=== PATIENT | female | born 1975 | race American Indian/Alaskan Native ===

== ENCOUNTER 2021-03-26 10:50 | Emergency (ER) | payer SELFPAY ==
[2021-03-26 11:08] VITALS: BP 146/99
--- NOTE | 2021-03-26 11:17 | Emergency Department Report ---
ED Neuro Deficit HPI - General Chief Complaint: Weakness Stated Complaint: NUBMESS IN HANDS AND LEGS Time Seen by Provider: 03/26/21 11:14 Source: patient Mode of arrival: Ambulatory Limitations: No Limitations - History of Present Illness Initial Comments: Patient presents with multiple complaints. She states that she just feels weak and dizzy. She has had numbness and tingling in her fingers and feet. She just does not feel well. She states that this been going on for "some time." She states that the numbness and tingling started to get worse 4 days ago. She states that she fell out of bed this morning. She states that she feels both lightheaded and describes vertigo. These symptoms vary. She reports that she has been seen at [facility] multiple times and they will "not tell me what is going on." She does have paperwork from [facility] including for dizziness and lightheadedness dated January of this year. She has no fever. There has been no diplopia. She has had no incontinence. - Related Data Allergies/Adverse Reactions: Allergies Allergy/AdvReac Type Severity Reaction Status Date / Time No Known Allergies Allergy Unverified 03/26/21 11:08 ED Review of Systems ROS: Stated complaint: NUBMESS IN HANDS AND LEGS Other details as noted in HPI Comment: All other systems reviewed and negative Constitutional: denies: fever Eyes: denies: vision change ENT: denies: throat pain Respiratory: denies: cough Cardiovascular: denies: chest pain Endocrine: denies: unexplained weight loss Gastrointestinal: denies: abdominal pain Genitourinary: denies: dysuria Musculoskeletal: denies: back pain Skin: denies: rash Neurological: as per HPI. denies: headache Hematological/Lymphatic: denies: easy bruising ED Past Medical Hx - Past Medical History Previous Medical History?: Yes Hx Seizures: Yes - Surgical History Past Surgical History?: Yes Additional Surgical History: - Family History Family history: hypertension, other ( Negative for stroke) - Social History Smoking Status: Current Every Day Smoker (we discussed tobacco cessation x3 minutes) ED Neuro Physical Exam - General Limitations: No Limitations, Other ( pulse ox was noted and normal.) General appearance: alert, in no apparent distress, other ( Nontoxic) Suspected Stroke: No - Head Head exam: Present: atraumatic, normocephalic, normal inspection - Eye Eye exam: Present: normal appearance, PERRL, EOMI. Absent: scleral icterus - ENT ENT exam: Present: normal exam, mucous membranes dry, normal external ear exam - Neck Neck exam: Present: normal inspection. Absent: meningismus - Respiratory Respiratory exam: Present: normal lung sounds bilaterally. Absent: respiratory distress - Cardiovascular Cardiovascular Exam: Present: regular rate, normal rhythm - GI/Abdominal GI/Abdominal exam: Present: soft. Absent: tenderness - Extremities Exam Extremities exam: Present: normal capillary refill. Absent: pedal edema, joint swelling - Back Exam Back exam: Absent: CVA tenderness (R), CVA tenderness (L) - Neurological Exam Neurological exam: Present: alert, oriented X3, CN II-XII intact, reflexes normal. Absent: motor sensory deficit - NIHSS Assessment Interval: Baseline 1a. Level of Consciousness: alert/keenly responsive 1b. LOC Questions: answers both correctly 1c. LOC Commands: performs tasks correctly 2. Best Gaze: normal 3. Visual: no visual loss 4. Facial Palsy: normal symmetrical movement 5b. Motor Arm Right: no drift 5a. Motor Arm Left: no drift 6a. Motor Leg Left: no drift 6b. Motor Leg Right: no drift 7. Limb Ataxia: absent 8. Sensory: normal 9. Best Language: no aphasia 10. Dysarthria: normal 11. Extinction/Inattention: no abnormality Total Score: 0 Stroke Severity: No Stroke Symptoms - Psychiatric Psychiatric exam: Present: flat affect - Skin Skin exam: Present: warm, dry ED Course Vital Signs 03/26/21 11:06 Temperature 98.9 F Pulse Rate 111 H Respiratory 16 Rate Blood Pressure 146/99 O2 Sat by Pulse 100 Oximetry - Reevaluation(s) Reevaluation #1: 03/26/21 11:17 labs were ordered. Discharge paperwork from [facility] and [facility] records reviewed. - Lab Data Result diagrams: 03/26/21 11:17 03/26/21 11:17 Lab Results 03/26/21 03/26/21 Range/Units 11:17 11:17 WBC 10.0 (4.5-11.0) K/mm3 RBC 2.79 L (3.65-5.03) M/mm3 Hgb 9.2 L (10.1-14.3) gm/dl Hct 27.9 L (30.3-42.9) % MCV 100 H (79-97) fl MCH 33 H (28-32) pg MCHC 33 (30-34) % RDW 18.1 H (13.2-15.2) % Plt Count 492 H (140-440) K/mm3 Sodium 129 L (137-145) mmol/L Potassium 3.2 L (3.6-5.0) mmol/L Chloride 89.1 L (98-107) mmol/L Carbon Dioxide 26 (22-30) mmol/L Anion Gap 17 mmol/L BUN 5 L (7-17) mg/dL Creatinine 0.4 L (0.6-1.2) mg/dL Estimated GFR > 60 ml/min BUN/Creatinine Ratio 13 % Glucose 108 H (65-100) mg/dL Calcium 9.1 (8.4-10.2) mg/dL - Medical Decision Making Patient was not found to have evidence of stroke given her presentation. She certainly did not have obvious metabolic derangement to account for any paresthesias. She does have a mild hypokalemia which can be addressed as an outpatient. She has mild hyponatremia also can be addressed as an outpatient. Patient seems to have a chronic anemia. She does not seem to be symptomatic from this. It is unlikely that earlier hemoglobin of 9 would cause generalized weakness. Regardless, she can take iron and follow-up with your regular doctor. There is no obvious infectious pathology to account for her symptoms either. Critical Care Time: No Critical care attestation.: If time is entered above; I have spent that time in minutes in the direct care of this critically ill patient, excluding procedure time. ED Disposition Clinical Impression: General weakness Disposition: 01 HOME / SELF CARE / HOMELESS Is pt being admited?: No Condition: Stable Instructions: Weakness Additional Instructions: Take iron tablets [id number]-[id number]. Take a multivitamin. Drink plenty water. Return for problems. Eat foods that are high in potassium including bananas, tomatoes, and orange juice. Referrals: ALYSA QUINTERO MD [Staff Physician] - 3-5 Days PRIMARY CAREMD [Referring] - 3-5 Days
[2021-03-26 11:54] LABS: Hematocrit 27.9 % (30.3-42.9); Hemoglobin 9.2 gm/dl (10.1-14.3); Mean Corpuscular HGB Conc 33 % (30-34); Mean Corpuscular Volume 100 fl (79-97); Platelet Count 492 K/mm3 (140-440); Red Blood Count 2.79 M/mm3 (3.65-5.03); Red Cell Distribution Width 18.1 % (13.2-15.2)
[2021-03-26 11:59] LABS: Blood Urea Nitrogen 5 mg/dL (7-17); Calcium 9.1 mg/dL (8.4-10.2); Hemolysis Index 4
[2021-03-26 12:01] LABS: BUN/Creatinine Ratio 13
== END 2021-03-26 14:33 | disposition home or self-care (01) ==
LOC: ED 10:50
DX: R53.1 Weakness (principal); R42 Dizziness and giddiness; F17.200 Nicotine dependence, unspecified, uncomplicated; Z98.890 Other specified postprocedural states
CPT/HCPCS: 36415; 80048; 85027; 99283

== ENCOUNTER 2021-03-31 10:38 | Inpatient (IN) | payer SELFPAY ==
--- NOTE | 2021-03-31 10:52 | Event Note ---
ED Screening Note ED Screening Note: PMH SZ CYCLICAL VOMITING HTN HOME RX KEPPRA PPI SPIRONAL. PCP KRISTIN LMP 1 Y AGO PSH CSEC CIG/OCC THC/OCC ETOH CO VISION CHANGE/ THINKS SHE HAD A SZ HR 115 NO VOMITING This initial assessment/diagnostic orders/clinical plan/treatment(s) is/are subject to change based on patients health status, clinical progression and re- assessment by fellow clinical providers in the ED. Further treatment and workup at subsequent clinical providers discretion. Patient/guardian urged not to elope from the ED as their condition may be serious if not clinically assessed and managed. Initial orders include:
[2021-03-31] MEDS ORDERED: LACTATED RINGERS 1,000 ML IV ONE ×2 (11:03→15:00)
--- NOTE | 2021-03-31 11:04 | Emergency Department Report ---
ED General Adult HPI - General Chief complaint: Neuro Symptoms/Deficit Stated complaint: EYES BLURRY,CANT WALK PUI?: No Time Seen by Provider: 03/31/21 10:47 Source: patient, RN notes reviewed, old records reviewed Mode of arrival: Wheelchair Limitations: Physical Limitation - History of Present Illness Initial comments: The patient was evaluated in the emergency department for symptoms described in the history of present illness. He/she was evaluated in the context of the global COVID-19 pandemic, which necessitated consideration that the patient might be at risk for infection with the virus that causes COVID-19. Instit utional protocols and algorithms that pertain to the evaluation of patients at risk for COVID-19 are in a state of rapid change based on information released by regulatory bodies including the CDC and federal and state organizations. These policies and algorithms were followed during the patient's care in the emergency department. Please note that these policies, procedures and recommendations changed on a rapid basis. The patient is a 45-year-old female. She is not known to myself previously. She presents to the ER today with a complaint of 4 to 5 days of right-sided binocular blurry vision, with right lateral temporal visual loss, numbness in her bilateral hands and forearms, unsteady gait and inability to walk. She denies headache, neck pain, chest pain, abdominal pain, shortness of breath, nausea, vomiting diarrhea. She denies loss of taste and smell. -: days(s) Consistency: constant Improves with: rest Worsens with: movement - Related Data Home Medications Medication Instructions Recorded Confirmed Last Taken Aldactone 50 mg PO DAILY 03/31/21 03/31/21 Unknown Pantoprazole Sodium [Protonix] 40 mg PO DAILY 03/31/21 03/31/21 03/22/21 19:00 levETIRAcetam [Keppra TAB] 500 mg PO BID 03/31/21 03/31/21 03/30/21 Allergies Allergy/AdvReac Type Severity Reaction Status Date / Time No Known Allergies Allergy Verified 03/31/21 10:43 ED Review of Systems ROS: Stated complaint: EYES BLURRY,CANT WALK Other details as noted in HPI Constitutional: malaise, weakness. denies: fever Eyes: vision change. denies: eye discharge ENT: denies: epistaxis Respiratory: denies: cough Cardiovascular: denies: chest pain Gastrointestinal: denies: abdominal pain, nausea, vomiting, diarrhea Genitourinary: denies: dysuria Neurological: headache, weakness, abnormal gait Psychiatric: anxiety ED Past Medical Hx - Past Medical History Hx Seizures: Yes - Surgical History Additional Surgical History: - Social History Smoking Status: Current Every Day Smoker (we discussed tobacco cessation x3 m inutes) - Medications Home Medications: Home Medications Medication Instructions Recorded Confirmed Last Taken Type Aldactone 50 mg PO DAILY 03/31/21 03/31/21 Unknown History Pantoprazole Sodium [Protonix] 40 mg PO DAILY 03/31/21 03/31/21 03/22/21 19:00 History levETIRAcetam [Keppra TAB] 500 mg PO BID 03/31/21 03/31/21 03/30/21 History ED Physical Exam - General Limitations: Physical Limitation General appearance: alert, anxious - Head Head exam: Present: atraumatic, normocephalic - Eye Eye exam: Present: normal appearance (Visual acuity intact to finger counting in color perception at a close distance), PERRL, EOMI (EOMI left eye.), nystagmus, other (A right-sided internuclear ophthalmoplegia is noted. Right eye does not adduction past midline.) - ENT ENT exam: Present: normal exam, normal orophraynx, mucous membranes moist, normal external ear exam - Neck Neck exam: Present: normal inspection, full ROM. Absent: tenderness, meningismus - Respiratory Respiratory exam: Present: normal lung sounds bilaterally. Absent: respiratory distress, wheezes, rales, rhonchi, stridor, decreased breath sounds - Cardiovascular Cardiovascular Exam: Present: normal rhythm, tachycardia, normal heart sounds. Absent: systolic murmur, diastolic murmur, rubs, gallop - GI/Abdominal GI/Abdominal exam: Present: soft. Absent: distended, tenderness, guarding, rebound, rigid - Extremities Exam Extremities exam: Present: normal inspection, full ROM, other (2+ pulses noted in the bilateral upper and lower extremities. There is no palpable cord. negative Homans sign. Muscular compartments are soft. The pelvis is stable.). Absent: pedal edema, calf tenderness - Back Exam Back exam: Present: normal inspection, full ROM. Absent: tenderness, CVA tenderness (R), CVA tenderness (L), paraspinal tenderness, vertebral tenderness - Neurological Exam Neurological exam: Present: alert, oriented X3, abnormal gait (Patient is unsteady, and walks with a broad-based gait), other (There is no facial droop. Tongue is midline. Left EOMI. Right-sided TYRON noted. Hearing intact grossly. 5 out of 5 strength bilateral upper and lower extremities. Sensation intact to light touch in 4 extremities.). Absent: reflexes normal (Downgoing plantar reflexes bilaterally. Diminished biceps, triceps, quadriceps reflexes bilaterally.) - Psychiatric Psychiatric exam: Present: anxious - Skin Skin exam: Present: warm, dry, intact, normal color. Absent: rash ED Course Vital Signs 03/31/21 03/31/21 03/31/21 10:44 14:59 15:08 Temperature 98.1 F Pulse Rate 115 H 101 H 98 H Respiratory 16 18 16 Rate Blood Pressure 142/97 [Left] O2 Sat by Pulse 100 Oximetry 03/31/21 03/31/21 03/31/21 15:25 15:31 15:45 Temperature Pulse Rate 120 H 110 H 104 H Respiratory 11 L 14 Rate Blood Pressure [Left] O2 Sat by Pulse Oximetry 03/31/21 03/31/21 03/31/21 16:01 16:15 16:31 Temperature Pulse Rate 92 H 91 H 105 H Respiratory 12 14 12 Rate Blood Pressure [Left] O2 Sat by Pulse Oximetry 03/31/21 03/31/21 03/31/21 16:45 17:01 17:15 Temperature Pulse Rate 101 H 102 H 99 H Respiratory 11 L 18 22 Rate Blood Pressure [Left] O2 Sat by Pulse Oximetry 03/31/21 03/31/21 03/31/21 17:31 17:45 18:01 Temperature Pulse Rate 101 H 95 H 108 H Respiratory 17 13 11 L Rate Blood Pressure [Left] O2 Sat by Pulse Oximetry 03/31/21 03/31/21 03/31/21 18:15 18:31 18:45 Temperature Pulse Rate 103 H 102 H 96 H Respiratory 13 11 L 12 Rate Blood Pressure [Left] O2 Sat by Pulse Oximetry 03/31/21 03/31/21 03/31/21 19:01 19:15 19:31 Temperature Pulse Rate 101 H 95 H 97 H Respiratory 9 L 16 10 L Rate Blood Pressure [Left] O2 Sat by Pulse Oximetry 04/01/21 00:00 Temperature Pulse Rate 99 H Respiratory Rate Blood Pressure [Left] O2 Sat by Pulse Oximetry - Reevaluation(s) Reevaluation #1: 03/31/21 11:26 Differential diagnosis, including but not limited to: Multiple sclerosis, electrolyte derangement, internuclear ophthalmoplegia, Warnicke's encephalopathy, stroke, myopathy, deconditioning, alcohol dependence Assessment and plan: 45-year-old female, who is afebrile but tachycardic, walking with an unsteady gait for 4 days, has past-pointing in her bilateral upper extremities, positive bilateral upper extremity pronator drift, [id number] clumsy, right-sided ocular lateral visual field cut, 4 days of neurologic symptoms. Given duration of symptoms, not a TPA candidate, and emergent CT angiogram head and neck not indicated. Patient will be treated aggressively with IV fluids, high-dose thiamine, we will obtain stat neurology consultation, noncontrast CT scan of the brain, repeat laboratory studies, and admit this patient to the medical service. I discussed this plan of care with the patient. She is agreeable to this plan of care. Reassess after initial data points Reevaluation #2: 03/31/21 11:52 Discussed patient's history, physical, clinical impression with neurology on- call, Dr. Mcdermott. He will evaluate the patient. Is in agreement with thiamine, and noncontrast CT scan of the brain. Also recommends a CT angiogram head and neck. He will make further recommendations after his assessment 03/31/21 13:38 The patient is found to have hypokalemia and hypomagnesemia. We are replete this. CT scan brain negative for acute findings. CT angiogram head negative for acute findings. Dr. Mcdermott's recommendations are reviewed and appreciated CT angiogram neck negative for acute findings Admitted to the hospital service under the care of Dr. Francisco Javier Kinsey 03/31/21 14:13 ED Medical Decision Making - Lab Data Result diagrams: 04/02/21 08:57 04/02/21 04:45 Vital Signs 03/31/21 10:44 Temperature 98.1 F Pulse Rate 115 H Respiratory 16 Rate Blood Pressure 142/97 [Left] O2 Sat by Pulse 100 Oximetry - EKG Data -: EKG Interpreted by De EKG shows normal: sinus rhythm Rate: normal - EKG Data When compared to previous EKG there are: previous EKG unavailable 03/31/21 14:13 The EKG is interpreted at 13: 43 Sinus rhythm, 96 bpm. Normal axis, normal P wave axis. Left ventricular hypertrophy. Atrial enlargement. Motion artifact. Abnormal EKG. Not a STEMI. - Radiology Data Radiology results: pending, report reviewed, image reviewed CT head/brain wo con INDICATION / CLINICAL INFORMATION: 45 years Female; TYRON right eye, ataxia arm numbness. TECHNIQUE: Routine CT head without contrast. All CT scans at this location are performed using CT dose reduction for ALARA by means of automated exposure control. COMPARISON: None. FINDINGS: BRAIN / INTRACRANIAL CONTENTS: No acute hemorrhage, mass effect, midline shift, hydrocephalus, or acute, large territorial infarct. No signs of significant atrophy or chronic infarct. No significant white matter abnormality seen. CRANIOCERVICAL JUNCTION: No significant abnormality. ORBITS: No significant abnormality of visualized orbits. SINUSES / MASTOIDS: Visualized paranasal sinuses and mastoid air cells are essentially clear. ADDITIONAL FINDINGS: None. IMPRESSION: 1. No focal mass, hemorrhage, hydrocephalus, or acute, large territorial infarct. Signer Name: Elier Cintron MD, III Signed: 03/31/2021 12:25 PM Workstation Name: [id number] CTA HEAD WITH CONTRAST HISTORY: Unsteady gait; visual field loss COMPARISON: None. TECHNIQUE: Routine non-contrast CT Head, CTA of the head and post- contrast CT Head are performed. 3-D/MIP reformats postprocessed. All CT scans at this location are performed using CT dose reduction for ALARA by means of automated exposure control CONTRAST: 100 ml of Omnipaque 350 FINDINGS: CTA Head: Intracranial vertebral arteries: Dominant left vertebral artery normal; smaller right vertebral artery patent up to basilar formation Basilar artery: No significant abnormality. Posterior cerebral arteries: No significant abnormality. Intracranial internal carotid arteries: No significant abnormality . Anterior cerebral arteries: No significant abnormality. Left A1 segment is the dominant artery Middle cerebral arteries: No significant abnormality. Dural venous sinuses:Not optimally opacified. No significant abnormality. Additional findings: None. IMPRESSION: 1. No significant abnormality. Signer Name: Emiliano Curiel MD Signed: 03/31/2021 12:31 PM Workstation Name: [id number] . CT angio neck INDICATION / CLINICAL INFORMATION: 45 years Female; Unsteady gait, visual field loss omni 350 100ml . TECHNIQUE: Thin cut axial images obtained through the head during IV bolus contrast administration. Sagittal, coronal, and 3 plane MIP reconstructions performed by the technologist. NASCET type criteria used evaluate stenoses. All CT scans at this location are performed using CT dose reduction for ALARA by means of automated exposure control. COMPARISON: None available. FINDINGS: ARCH: Bovine arch configuration noted. CAROTID ARTERIES: The visualized common and extracranial, internal carotid arteries are patent, but may be diffusely narrowed to a very mild degree. In addition, there may be mild, smooth narrowing of the internal carotid arteries in the carotid canals bilaterally-arteritis/vasculitis might be consideration. Please clinically correlate. Note, the lumen of the internal carotid arteries in the region of the carotid canals measure approximately 2-3 mm in maximum diameter. VERTEBRAL ARTERIES: Codominant vertebral system seen. No significant stenosis appreciated. ADDITIONAL FINDINGS: Poor dentition noted. There is minimal opacification of the inferior mastoids on the left. No coalescence of air cells identified. IMPRESSION: 1. No dominant stenosis appreciated on this CTA of the neck. 2. Mild narrowing of the internal carotid arteries seen in the symmetric fashion, as described above. Signer Name: Elier Cintron MD, III Signed: 03/31/2021 12:52 PM Critical care attestation.: If time is entered above; I have spent that time in minutes in the direct care of this critically ill patient, excluding procedure time. ED Disposition Clinical Impression: Unsteady gait, Visual loss, Hypokalemia, Hypomagnesemia, Macrocytic anemia Disposition: 09 ADMITTED INPATIENT Is pt being admited?: Yes Does the pt Need Aspirin: Yes Condition: Good - Assessment Assessment Interval: Baseline - Level of Consciousness 1a. Level of Consciousness: alert/keenly responsive - LOC Questions 1b. LOC Questions: answers both correctly - LOC Command 1c. LOC Commands: performs tasks correctly - Best Gaze 2. Best Gaze: normal - Visual 3. Visual: partial hemianopia - Facial Palsy 4. Facial Palsy: normal symmetrical movement - Motor Arm 5a. Motor Arm Left: drift 5b. Motor Arm Right: drift - Motor Leg 6a. Motor Leg Left: no drift 6b. Motor Leg Right: no drift - Limb Ataxia 7. Limb Ataxia: present 2 limbs - Sensory 8. Sensory: mild/moderate sensory loss - Best Language 9. Best Language: no aphasia - Dysarthria 10. Dysarthria: normal - Extinction and Inattention 11. Extinction/Inattention: no abnormality - Scoring Total Score: 6 Stroke Severity: Moderate Stroke
[2021-03-31] MEDS ORDERED: LORazepam 2 MG/ML VIAL IV PRN ×3 (11:24)
[2021-03-31] MEDS ORDERED: THIAMINE 500 MG in SODIUM CHLORIDE 0.9% 50 ML IV ONE (11:24)
[2021-03-31 11:40] LABS: Basophils # (Auto) 0.1 K/mm3 (0.0-0.1); Basophils % (Auto) 0.7 % (0.0-1.8); Eosinophils # (Auto) 0.1 K/mm3 (0.0-0.4); Eosinophils % (Auto) 1.1 % (0.0-4.3); Hematocrit 28.4 % (30.3-42.9); Hemoglobin 9.5 gm/dl (10.1-14.3); Lymphocytes % (Auto) 18.2 % (13.4-35.0); Mean Corpuscular HGB Conc 34 % (30-34); Mean Corpuscular Volume 102 fl (79-97); Monocytes # (Auto) 0.7 K/mm3 (0.0-0.8); Monocytes % (Auto) 6.2 % (0.0-7.3); Platelet Count 592 K/mm3 (140-440); Red Blood Count 2.79 M/mm3 (3.65-5.03)
[2021-03-31 11:48] LABS: INR 1.03 (0.87-1.13); Partial Thromboplastin Time 39.9 Sec. (24.2-36.6); Thrombin Time 18.6 Sec. (15.1-19.6)
[2021-03-31 12:04] LABS: Creatine Kinase MB 1.8 ng/mL (0.0-4.0)
[2021-03-31 12:05] LABS: Alanine Aminotransferase 26 units/L (7-56); Albumin 3.6 g/dL (3.9-5); Blood Urea Nitrogen 6 mg/dL (7-17); Hemolysis Index 0
[2021-03-31 12:07] LABS: BUN/Creatinine Ratio 15
[2021-03-31] MEDS ORDERED: MAGNESIUM SULFATE 2 GM/50 ML BAG IV ONE (12:09)
[2021-03-31] MEDS ORDERED: MAGNESIUM OXIDE 400 MG TAB PO STA (12:09)
[2021-03-31] MEDS ORDERED: POTASSIUM CHLORIDE ER 20 MEQ TAB PO ONE (12:09)
--- NOTE | 2021-03-31 12:27 | Consultation ---
History of Present Illness Consult date: 03/31/21 Medications and Allergies Allergies Allergy/AdvReac Type Severity Reaction Status Date / Time No Known Allergies Allergy Verified 03/31/21 10:43 Home Medications Medication Instructions Recorded Confirmed Last Taken Type Ibuprofen [Motrin] 600 mg PO Q8H PRN #20 tablet 03/26/21 Unknown Rx Active Meds: Active Medications Chlordiazepoxide HCl (Chlordiazepoxide 25 Mg Cap) 50 mg PO Q1HR PRN PRN Reason: CIWA-Ar 8-15 Thiamine HCl 500 mg/ Sodium (Chloride) 105 mls @ 100 mls/hr IV ONCE ONE Stop: 03/31/21 14:02 Magnesium Sulfate (Magnesium Sulfate 2gm/50ml) 2 gm in 50 mls @ 100 mls/hr IV ONCE ONE Stop: 03/31/21 12:38 Potassium Chloride (Kcl 20meq/100ml) 20 meq in 100 mls @ 100 mls/hr IV Q1H JONATHAN Stop: 03/31/21 15:59 Lorazepam (Lorazepam 2 Mg/Ml Vial) 2 mg IV Q1HR PRN PRN Reason: CIWA-Ar 8-15 Lorazepam (Lorazepam 2 Mg/Ml Vial) 4 mg IV Q1HR PRN PRN Reason: CIWA-Ar 16-25 Lorazepam (Lorazepam 2 Mg/Ml Vial) 4 mg IV Q15MIN PRN PRN Reason: CIWA-Ar >25 Physical Examination - Vital Signs Vital Signs: Vital Signs Temp Pulse Resp BP Pulse Ox 98.1 F 115 H 16 142/97 100 03/31/21 10:44 03/31/21 10:44 03/31/21 10:44 03/31/21 10:44 03/31/21 10:44 Results - Laboratory Findings CBC and BMP: 03/31/21 11:10 03/31/21 11:10 Abnormal Lab Findings: Abnormal Labs 03/31/21 03/31/21 03/31/21 11:10 11:10 11:10 WBC 11.1 H RBC 2.79 L Hgb 9.5 L Hct 28.4 L MCV 102 H MCH 34 H RDW 18.0 H Plt Count 592 H Seg Neutrophils % 73.8 H Seg Neutrophils # 8.2 H APTT 39.9 H Sodium 135 L Potassium 2.7 L* Chloride 94.3 L BUN 6 L Creatinine 0.4 L Glucose 124 H Magnesium AST 106 H Alkaline Phosphatase 249 H CK-MB (CK-2) Rel Index 5.6 H Albumin 3.6 L 03/31/21 11:10 WBC RBC Hgb Hct MCV MCH RDW Plt Count Seg Neutrophils % Seg Neutrophils # APTT Sodium Potassium Chloride BUN Creatinine Glucose Magnesium 1.60 L AST Alkaline Phosphatase CK-MB (CK-2) Rel Index Albumin Assessment and Plan [facility] Consult Note # Demographics Consult Type: General Neurology Patient Location: Emergency Room First Name: Germaine Last Name: Natalee Date of : 1975 Age: 45 Gender: Female Facility: [facility] Time of Initial Page ( Time): 03/31/2021, 11:46 Time of Return Call ( Time): 03/31/2021, 11:47 # HPI History: 45 yo woman with history of alcohol disease, presents with a couple days of vision loss in left eye associated with left facial numbness, arms and leg weakness and numbness. # Scores Time of exam and NIHSS (): 03/31/2021, 12:00 Level of Consciousness 1a: [0] = Alert; keenly responsive LOC Questions 1b: [0] = Answers both questions correctly LOC Commands 1c: [0] = Performs both tasks correctly Best Gaze 2: [0] = Normal Visual 3: [0] = No visual loss Facial Palsy 4: [0] = Normal symmetrical movements Motor Arm Left 5a: [0] = No drift Motor Arm Right 5b: [0] UN = Amputation or joint fusion Motor Leg Left 6a: [2] = Some effort against gravity Motor Leg Right 6b: [2] = Some effort against gravity Limb Ataxia 7: [2] = Present in two limbs Sensory 8: [1] = [id number] sensory loss Best Language 9: [0] = No aphasia Dysarthria 10: [1] = [id number]-[id number] dysarthria Extinction and Inattention 11: [0] = No abnormality NIHSS Total: 8 # PMH-FH-SH Past Medical History: hypertension seizure Social History: smoker non-drinker Quit alcohol two weeks ago Medications: antihypertensive Keppra, Allergies: NKDA # Assessment Impression: Diffuse numbness, weakness, ataxia, dysarthria, vision changes with history of alcohol abuse. Differential includes alocholic neuropathy, vitamin deficiency, demyelinating, other. # Plan Thrombolytic/Intervention: NOT IV Thrombolysis or IA Intervention candidate Thrombolytic Exclusion: > 4.5 hours Intraarterial Exclusion: other Symptoms not suggestive of LVO Labs: B12 hemoglobin A1c lipid panel thiamine TSH Imaging: (urgency: STAT): CT Head without contrast CT Angiogram Head and CT Angiogram Neck Imaging: (urgency: routine): MRI Brain with AND without contrast Therapy/Evaluation: NPO until swallow evaluation PT/OT evaluation speech/swallow consultation DVT Prophylaxis: SCD Other: telemetry monitoring Additional Recommendations: : Thiamine replacement MRI brain with and without contrast B12 level Disposition: admit # Logistics Telemedicine: Interactive 2 way audio and visual telecommunication technology was utilized during this visit
[2021-03-31] MEDS ORDERED: THIAMINE 500 MG in SODIUM CHLORIDE 0.9% 100 ML IV ONE (13:00)
--- NOTE | 2021-03-31 13:30 | Cat Scan Report ---
CT head/brain wo con INDICATION / CLINICAL INFORMATION: 45 years Female; TYRON right eye, ataxia arm numbness. TECHNIQUE: Routine CT head without contrast. All CT scans at this location are performed using CT dos e reduction for ALARA by means of automated exposure control. COMPARISON: None. FINDINGS: BRAIN / INTRACRANIAL CONTENTS: No acute hemorrhage, mass effect, midline shift, hydrocephalus, or acu te, large territorial infarct. No signs of significant atrophy or chronic infarct. No significant whi te matter abnormality seen. CRANIOCERVICAL JUNCTION: No significant abnormality. ORBITS: No significant abnormality of visualized orbits. SINUSES / MASTOIDS: Visualized paranasal sinuses and mastoid air cells are essentially clear. ADDITIONAL FINDINGS: None. IMPRESSION: 1. No focal mass, hemorrhage, hydrocephalus, or acute, large territorial infarct. Signer Name: Elier Cintron MD, III Signed: 03/31/2021 1:25 PM Workstation Name: [id number]
--- NOTE | 2021-03-31 13:35 | Cat Scan Report ---
CTA HEAD WITH CONTRAST HISTORY: Unsteady gait; visual field loss COMPARISON: None. TECHNIQUE: Routine non-contrast CT Head, CTA of the head and post-contrast CT Head are performed. 3-D /MIP reformats postprocessed. All CT scans at this location are performed using CT dose reduction for ALARA by means of automated exposure control CONTRAST: 100 ml of Omnipaque 350 FINDINGS: CTA Head: Intracranial vertebral arteries: Dominant left vertebral artery normal; smaller right vertebral arter y patent up to basilar formation Basilar artery: No significant abnormality. Posterior cerebral arteries: No significant abnormality. Intracranial internal carotid arteries: No significant abnormality. Anterior cerebral arteries: No significant abnormality. Left A1 segment is the dominant artery Middle cerebral arteries: No significant abnormality. Dural venous sinuses:Not optimally opacified. No significant abnormality. Additional findings: None. IMPRESSION: 1. No significant abnormality. Signer Name: Emiliano Curiel MD Signed: 03/31/2021 1:31 PM Workstation Name: [id number]
[2021-03-31] MEDS ORDERED: ASPIRIN 81 MG TAB CHEW PO ONE (13:40)
--- NOTE | 2021-03-31 13:56 | Cat Scan Report ---
. CT angio neck INDICATION / CLINICAL INFORMATION: 45 years Female; Unsteady gait, visual field loss omni 350 100ml . TECHNIQUE: Thin cut axial images obtained through the head during IV bolus contrast administration. S agittal, coronal, and 3 plane MIP reconstructions performed by the technologist. NASCET type criteria used evaluate stenoses. All CT scans at this location are performed using CT dose reduction for ALAR A by means of automated exposure control. COMPARISON: None available. FINDINGS: ARCH: Bovine arch configuration noted. CAROTID ARTERIES: The visualized common and extracranial, internal carotid arteries are patent, but m ay be diffusely narrowed to a very mild degree. In addition, there may be mild, smooth narrowing of t he internal carotid arteries in the carotid canals bilaterally-arteritis/vasculitis might be consider ation. Please clinically correlate. Note, the lumen of the internal carotid arteries in the region of the carotid canals measure approximately 2-3 mm in maximum diameter. VERTEBRAL ARTERIES: Codominant vertebral system seen. No significant stenosis appreciated. ADDITIONAL FINDINGS: Poor dentition noted. There is minimal opacification of the inferior mastoids on the left. No coalescence of air cells iden tified. IMPRESSION: 1. No dominant stenosis appreciated on this CTA of the neck. 2. Mild narrowing of the internal carotid arteries seen in the symmetric fashion, as described above. Signer Name: Elier Cintron MD, III Signed: 03/31/2021 1:52 PM Workstation Name: [id number]
[2021-03-31] MEDS: POTASSIUM CHLORIDE 20 MEQ 20 MEQ/100 ML BAG IV SCH ×3 (14:38→20:54)
--- NOTE | 2021-03-31 20:26 | History and Physical Report ---
History of Present Illness Date of examination: 03/31/21 Date of admission: 03/31/21 13:40 Chief complaint: Severe unsteady gait for 1 week History of present illness: 45-year-old female with history of seizures comes in for severe unsteady gait for the last 4 to 5 days. Gradual onset. Also blurry vision in the right eye. No chest pain. No CVA in the past. History of seizures present. No hypertension. Patient unable to stand straighter and walk. Very ataxic. No exacerbating or relieving factors - Past Medical History Hx Seizures: Yes - Surgical History Additional Surgical History: - Social History Smoking Status: Current Every Day Smoker (we discussed tobacco cessation x3 minutes) - Medications Home Medications: Home Medications Medication Instructions Recorded Confirmed Last Taken Type Aldactone 50 mg PO DAILY 03/31/21 03/31/21 Unknown History Pantoprazole Sodium [Protonix] 40 mg PO DAILY 03/31/21 03/31/21 03/22/21 19:00 History levETIRAcetam [Keppra TAB] 500 mg PO BID 03/31/21 03/31/21 03/30/21 History Review of Systems ROS: Stated complaint: EYES BLURRY,CANT WALK Other details as noted in HPI Constitutional: malaise, weakness. denies: fever Eyes: vision change. denies: eye discharge ENT: denies: epistaxis Respiratory: denies: cough Cardiovascular: denies: chest pain Gastrointestinal: denies: abdominal pain, nausea, vomiting, diarrhea Genitourinary: denies: dysuria Neurological: headache, weakness, abnormal gait Psychiatric: anxiety Medications and Allergies Allergies Allergy/AdvReac Type Severity Reaction Status Date / Time No Known Allergies Allergy Verified 03/31/21 10:43 Home Medications Medication Instructions Recorded Confirmed Last Taken Type Aldactone 50 mg PO DAILY 03/31/21 03/31/21 Unknown History Pantoprazole Sodium [Protonix] 40 mg PO DAILY 03/31/21 03/31/21 03/22/21 19:00 History levETIRAcetam [Keppra TAB] 500 mg PO BID 03/31/21 03/31/21 03/30/21 History Active Meds: Active Medications Chlordiazepoxide HCl (Chlordiazepoxide 25 Mg Cap) 50 mg PO Q1HR PRN PRN Reason: CIWA-Ar 8-15 Lorazepam (Lorazepam 2 Mg/Ml Vial) 2 mg IV Q1HR PRN PRN Reason: CIWA-Ar 8-15 Lorazepam (Lorazepam 2 Mg/Ml Vial) 4 mg IV Q1HR PRN PRN Reason: CIWA-Ar 16-25 Lorazepam (Lorazepam 2 Mg/Ml Vial) 4 mg IV Q15MIN PRN PRN Reason: CIWA-Ar >25 Exam - Constitutional Vitals: Temp Pulse Resp BP Pulse Ox 98.1 F 115 H 16 142/97 100 03/31/21 10:44 03/31/21 10:44 03/31/21 10:44 03/31/21 10:44 03/31/21 10:44 General appearance: Present: no acute distress, well-nourished - EENT Eyes: Present: PERRL ENT: hearing intact, clear oral mucosa - Neck Neck: Present: supple, normal ROM - Respiratory Respiratory effort: normal Respiratory: bilateral: CTA - Cardiovascular Rhythm: regular Heart Sounds: Present: S1 & S2. Absent: rub, click - Extremities Extremities: pulses symmetrical, No edema Peripheral Pulses: within normal limits - Abdominal General gastrointestinal: Present: soft, non-tender, non-distended, normal bowel sounds Female genitourinary: Present: normal - Integumentary Integumentary: Present: clear, warm, dry - Musculoskeletal Musculoskeletal: gait normal, strength equal bilaterally - Psychiatric Psychiatric: appropriate mood/affect, intact judgment & insight - Neurologic Neurologic: CNII-XII intact, moves all extremities - Allied Health Allied health notes reviewed: nursing, case management HEART Score - HEART Score Troponin: Troponin T < 0.010 ng/mL (0.00-0.029) 03/31/21 11:10 Results - Labs CBC & Chem 7: 04/01/21 05:10 04/01/21 05:10 Labs: Laboratory Last Values WBC 11.1 K/mm3 (4.5-11.0) H 03/31/21 11:10 RBC 2.79 M/mm3 (3.65-5.03) L 03/31/21 11:10 Hgb 9.5 gm/dl (10.1-14.3) L 03/31/21 11:10 Hct 28.4 % (30.3-42.9) L 03/31/21 11:10 MCV 102 fl (79-97) H 03/31/21 11:10 MCH 34 pg (28-32) H 03/31/21 11:10 MCHC 34 % (30-34) 03/31/21 11:10 RDW 18.0 % (13.2-15.2) H 03/31/21 11:10 Plt Count 592 K/mm3 (140-440) H 03/31/21 11:10 Lymph % (Auto) 18.2 % (13.4-35.0) 03/31/21 11:10 [place] % (Auto) 6.2 % (0.0-7.3) 03/31/21 11:10 Eos % (Auto) 1.1 % (0.0-4.3) 03/31/21 11:10 Baso % (Auto) 0.7 % (0.0-1.8) 03/31/21 11:10 Lymph # (Auto) 2.0 K/mm3 (1.2-5.4) 03/31/21 11:10 [place]ades # (Auto) 0.7 K/mm3 (0.0-0.8) 03/31/21 11:10 Eos # (Auto) 0.1 K/mm3 (0.0-0.4) 03/31/21 11:10 Baso # (Auto) 0.1 K/mm3 (0.0-0.1) 03/31/21 11:10 Seg Neutrophils % 73.8 % (40.0-70.0) H 03/31/21 11:10 Seg Neutrophils # 8.2 K/mm3 (1.8-7.7) H 03/31/21 11:10 PT 14.0 Sec. (12.2-14.9) 03/31/21 11:10 INR 1.03 (0.87-1.13) 03/31/21 11:10 APTT 39.9 Sec. (24.2-36.6) H 03/31/21 11:10 Thrombin Time 18.6 Sec. (15.1-19.6) 03/31/21 11:10 Sodium 135 mmol/L (137-145) L 03/31/21 11:10 Potassium 2.7 mmol/L (3.6-5.0) L* 03/31/21 11:10 Chloride 94.3 mmol/L (98-107) L 03/31/21 11:10 Carbon Dioxide 23 mmol/L (22-30) 03/31/21 11:10 Anion Gap 20 mmol/L 03/31/21 11:10 BUN 6 mg/dL (7-17) L 03/31/21 11:10 Creatinine 0.4 mg/dL (0.6-1.2) L 03/31/21 11:10 Estimated GFR > 60 ml/min 03/31/21 11:10 BUN/Creatinine Ratio 15 % 03/31/21 11:10 Glucose 124 mg/dL (65-100) H 03/31/21 11:10 Calcium 9.0 mg/dL (8.4-10.2) 03/31/21 11:10 Magnesium 1.60 mg/dL (1.7-2.3) L 03/31/21 11:10 Total Bilirubin 0.80 mg/dL (0.1-1.2) 03/31/21 11:10 AST 106 units/L (5-40) H 03/31/21 11:10 ALT 26 units/L (7-56) 03/31/21 11:10 Alkaline Phosphatase 249 units/L (35-129) H 03/31/21 11:10 Total Creatine Kinase 32 units/L (30-135) 03/31/21 11:10 Total Creatine Kinase 32 units/L (30-135) 03/31/21 11:10 CK-MB (CK-2) 1.8 ng/mL (0.0-4.0) 03/31/21 11:10 CK-MB (CK-2) Rel Index 5.6 (0-4) H 03/31/21 11:10 Troponin T < 0.010 ng/mL (0.00-0.029) 03/31/21 11:10 Total Protein 7.0 g/dL (6.3-8.2) 03/31/21 11:10 Albumin 3.6 g/dL (3.9-5) L 03/31/21 11:10 Albumin/Globulin Ratio 1.1 % 03/31/21 11:10 Vitamin B12 663.3 pg/mL (211-911) 03/31/21 11:10 Folate 2.17 ng/mL (7.3-26.0) L 03/31/21 11:10 TSH 1.060 mlU/mL (0.270-4.200) 03/31/21 11:10 HCG, Quant 0.891 mIU/mL (0-4) 03/31/21 11:10 Plasma/Serum Alcohol < 0.01 % (0-0.07) 03/31/21 11:10 Short CBC 03/31/21 04/01/21 Range/Units 11:10 05:10 WBC 11.1 H 13.3 H (4.5-11.0) K/mm3 Hgb 9.5 L 8.2 L (10.1-14.3) gm/dl Hct 28.4 L 25.3 L (30.3-42.9) % Plt Count 592 H 531 H (140-440) K/mm3 BMP 03/31/21 04/01/21 11:10 05:10 Sodium 135 L 134 L Potassium 2.7 L* 4.7 D Chloride 94.3 L 99.5 Carbon Dioxide 23 21 L BUN 6 L 5 L Creatinine 0.4 L 0.3 L Glucose 124 H 77 Calcium 9.0 8.7 Cardiac Enzymes 03/31/21 03/31/21 Range/Units 11:10 11:10 Total Creatine Kinase 32 32 (30-135) units/L CK-MB (CK-2) 1.8 (0.0-4.0) ng/mL Troponin T < 0.010 (0.00-0.029) ng/mL Liver Function 03/31/21 04/01/21 Range/Units 11:10 05:10 Total Bilirubin 0.80 0.50 (0.1-1.2) mg/dL AST 106 H 105 H (5-40) units/L ALT 26 23 (7-56) units/L Alkaline Phosphatase 249 H 235 H (35-129) units/L Albumin 3.6 L 3.2 L (3.9-5) g/dL Urine 03/31/21 Range/Units 21:00 Urine Color Yellow (Yellow) Urine pH 6.0 (5.0-7.0) Ur Specific Rector 1.056 H (1.003-1.030) Urine Protein <15 mg/dl (Negative) mg/dL Urine Glucose (UA) Neg (Negative) mg/dL Assessment and Plan Advance Directives: Yes (Full code) VTE prophylaxis?: Chemical Plan of care discussed with patient/family: Yes - Patient Problems (1) Ataxia Current Visit: Yes Status: Acute Plan to address problem: Severe hypoxia Patient unable to stand and walk Gets very unsteady No loss of power Patient able to climb in the bed by herself Neurology consult MRI brain could not be ordered because of restriction (2) Seizure disorder Current Visit: Yes Status: Chronic Plan to address problem: Continue Keppra (3) Hypokalemia Current Visit: Yes Status: Acute Plan to address problem: Supplemented Hypokalemia can cause familiar periodic paralysis (4) Hypomagnesemia Current Visit: Yes Status: Acute Plan to address problem: Supplemented (5) Macrocytic anemia Current Visit: Yes Status: Chronic Plan to address problem: Anemia work-up including folic acid and B12 levels (6) DVT prophylaxis Current Visit: Yes Status: Acute Plan to address problem: On anticoagulation and GI prophylaxis
[2021-03-31] MEDS ORDERED: ONDANSETRON 4 MG/2 ML INJ IV PRN (20:34)
[2021-03-31] MEDS ORDERED: ACETAMINOPHEN 325 MG TAB PO PRN (20:34)
[2021-03-31] MEDS ORDERED: METOCLOPRAMIDE 10 MG/2 ML INJ IV PRN (20:34)
[2021-03-31] MEDS ORDERED: HYDROmorphone 1 MG/1 ML INJ IV PRN (20:34)
[2021-03-31 21:23] LABS: Bilirubin,Urine NEG (Negative); Blood,Urine SM (Negative); Color,Urine Yellow (Yellow); Mucus,Urine FEW /HPF; Protein,Urine <15 mg/dL mg/dL (Negative)
[2021-03-31 21:27] LABS: Amphetamine Screen,Urine Negative; Benzodiazepines Screen,Urine Negative; Cocaine Screen,Urine Negative; Methadone Screen,Urine Negative; Opiate Screen,Urine Negative
[2021-03-31 21:44] LABS: Cannabinoid Screen,Urine Positive
[2021-03-31] MEDS ORDERED: POTASSIUM CHLORIDE 10 MEQ 10 MEQ/100 ML BAG IV SCH (23:59)
[2021-04-01] MEDS: ASPIRIN 325 MG TAB PO SCH ×2 (01:10→10:38)
[2021-04-01] MEDS: POTASSIUM CHLORIDE ER 20 MEQ TAB PO SCH ×3 (01:47→16:02)
[2021-04-01] MEDS: HEPARIN 5,000 UNIT/1 ML VIAL SUB-Q SCH ×3 (01:48→22:30)
[2021-04-01] MEDS: levETIRAcetam 500 MG TAB PO SCH ×3 (01:48→21:42)
[2021-04-01] MEDS: oxyCODONE /ACETAMINOPHEN 5-325MG TAB PO PRN ×3 (01:48→14:08)
[2021-04-01] MEDS: SODIUM CHLORIDE 0.9% 1000 ML 1,000 ML IV SCH ×2 (01:50→18:26)
[2021-04-01 06:14] LABS: Basophils # (Auto) 0.1 K/mm3 (0.0-0.1); Basophils % (Auto) 0.6 % (0.0-1.8); Eosinophils # (Auto) 0.3 K/mm3 (0.0-0.4); Eosinophils % (Auto) 2.3 % (0.0-4.3); Hematocrit 25.3 % (30.3-42.9); Hemoglobin 8.2 gm/dl (10.1-14.3); Lymphocytes # (Auto) 2.7 K/mm3 (1.2-5.4); Mean Corpuscular HGB Conc 32 % (30-34); Mean Corpuscular Volume 103 fl (79-97); Monocytes # (Auto) 0.8 K/mm3 (0.0-0.8); Monocytes % (Auto) 5.8 % (0.0-7.3); Platelet Count 531 K/mm3 (140-440); Red Blood Count 2.45 M/mm3 (3.65-5.03); Red Cell Distribution Width 18.1 % (13.2-15.2)
[2021-04-01 06:53] LABS: Alanine Aminotransferase 23 units/L (7-56); Albumin 3.2 g/dL (3.9-5); Blood Urea Nitrogen 5 mg/dL (7-17); Calcium 8.7 mg/dL (8.4-10.2); Chol/HDL Ratio 6.28 %; HDL Cholesterol 28 mg/dL (40-59); Hemolysis Index 28; LDL Cholesterol,Direct 107 mg/dL (50-130)
[2021-04-01 06:55] LABS: BUN/Creatinine Ratio 17
--- NOTE | 2021-04-01 08:56 | Progress Note ---
Assessment and Plan Assessment and plan: --Severe ataxia[ Current Visit: Yes Status: Acute Severe ataxia, generalized weakness Patient unable to stand and walk Gets very unsteady, fall precautions Neurology evaluation noted and appreciated Neuro work-up is in progress MRI brain could not be ordered because of restriction --Acute/subacute lower and upper extremities weakness ; Current Visit: Yes Status: Acute Neurology evaluation noted and appreciated Neuro work-up with MRI brain Recommended lumbar puncture to rule out acute demyelinating neuropathy Possible GB syndrome Advised CSF analysis for protein, glucose, cell count, Also recommend, thiamine supplement and B1 level Symptoms also due to chronic alcohol use Lumbar puncture, MRI brain requested CSF analysis ordered per neurology -- h/oSeizure disorder Current Visit: Yes Status: Chronic Seizure precautions ,continue Keppra Ativan as needed, do not drive until cleared by neurology/PMD --Hypokalemia Current Visit: Yes Status: Acute Supplemented, monitor electrolytes Potassium levels within normal limits --Hypomagnesemia Current Visit: Yes Status: Acute Supplemented, monitor electrolytes -- Macrocytic anemia Current Visit: Yes Status: Chronic B12 within normal limits Folate levels low, supplement with folic acid Closely monitor --Recreational drug use/marijuana; Advised to quit marijuana --DVT prophylaxis Current Visit: Yes Status: Acute On anticoagulation and GI prophylaxis Neurology evaluation noted and appreciated We will closely monitor patient and adjust management as needed 04/01/2021; Fall precautions Seizure precautions Follow neuro work-up MRI brain Follow lumbar puncture procedure and CSF analysis Follow neuro recommendations History Interval history: I have seen and examined the patient this morning Patient's chart and medications reviewed Patient is severely ataxic, and severe weakness on the lower extremities Neurology evaluation noted and appreciated Recommend lumbar puncture to rule out GB syndrome Hospitalist Physical - Constitutional Vitals: Temp Pulse Resp BP Pulse Ox 98.3 F 99 H 18 176/106 100 04/01/21 03:59 04/01/21 03:59 04/01/21 03:59 04/01/21 07:35 04/01/21 03:59 General appearance: Present: no acute distress, well-nourished, other - EENT Eyes: Present: PERRL, EOM intact (Generalized weakness) - Neck Neck: Present: supple, normal ROM - Respiratory Respiratory effort: normal Respiratory: bilateral: diminished, negative: rales, rhonchi, wheezing - Cardiovascular Rhythm: regular Heart Sounds: Present: S1 & S2 - Extremities Extremities: no ischemia, No edema - Abdominal General gastrointestinal: soft, non-tender, non-distended, normal bowel sounds - Integumentary Integumentary: Present: clear, warm - Psychiatric Psychiatric: appropriate mood/affect, cooperative - Neurologic Neurologic: CNII-XII intact, moves all extremities, other (Ataxia, generalized weakness, unsteady gait) HEART Score - HEART Score Troponin: Troponin T < 0.010 ng/mL (0.00-0.029) 03/31/21 11:10 Results - Labs CBC & Chem 7: 04/01/21 17:16 04/01/21 05:10 Labs: Laboratory Last Values WBC 13.3 K/mm3 (4.5-11.0) H 04/01/21 05:10 RBC 2.45 M/mm3 (3.65-5.03) L 04/01/21 05:10 Hgb 8.2 gm/dl (10.1-14.3) L 04/01/21 05:10 Hct 25.3 % (30.3-42.9) L 04/01/21 05:10 MCV 103 fl (79-97) H 04/01/21 05:10 MCH 34 pg (28-32) H 04/01/21 05:10 MCHC 32 % (30-34) 04/01/21 05:10 RDW 18.1 % (13.2-15.2) H 04/01/21 05:10 Plt Count 531 K/mm3 (140-440) H 04/01/21 05:10 Lymph % (Auto) 20.0 % (13.4-35.0) 04/01/21 05:10 [place] % (Auto) 5.8 % (0.0-7.3) 04/01/21 05:10 Eos % (Auto) 2.3 % (0.0-4.3) 04/01/21 05:10 Baso % (Auto) 0.6 % (0.0-1.8) 04/01/21 05:10 Lymph # (Auto) 2.7 K/mm3 (1.2-5.4) 04/01/21 05:10 [place] # (Auto) 0.8 K/mm3 (0.0-0.8) 04/01/21 05:10 Eos # (Auto) 0.3 K/mm3 (0.0-0.4) 04/01/21 05:10 Baso # (Auto) 0.1 K/mm3 (0.0-0.1) 04/01/21 05:10 Seg Neutrophils % 71.3 % (40.0-70.0) H 04/01/21 05:10 Seg Neutrophils # 9.5 K/mm3 (1.8-7.7) H 04/01/21 05:10 PT 14.0 Sec. (12.2-14.9) 03/31/21 11:10 INR 1.03 (0.87-1.13) 03/31/21 11:10 APTT 39.9 Sec. (24.2-36.6) H 03/31/21 11:10 Thrombin Time 18.6 Sec. (15.1-19.6) 03/31/21 11:10 Sodium 134 mmol/L (137-145) L 04/01/21 05:10 Potassium 4.7 mmol/L (3.6-5.0) D 04/01/21 05:10 Chloride 99.5 mmol/L (98-107) 04/01/21 05:10 Carbon Dioxide 21 mmol/L (22-30) L 04/01/21 05:10 Anion Gap 18 mmol/L 04/01/21 05:10 BUN 5 mg/dL (7-17) L 04/01/21 05:10 Creatinine 0.3 mg/dL (0.6-1.2) L 04/01/21 05:10 Estimated GFR > 60 ml/min 04/01/21 05:10 BUN/Creatinine Ratio 17 % 04/01/21 05:10 Glucose 77 mg/dL (65-100) 04/01/21 05:10 Calcium 8.7 mg/dL (8.4-10.2) 04/01/21 05:10 Magnesium 1.60 mg/dL (1.7-2.3) L 03/31/21 11:10 Total Bilirubin 0.50 mg/dL (0.1-1.2) 04/01/21 05:10 AST 105 units/L (5-40) H 04/01/21 05:10 ALT 23 units/L (7-56) 04/01/21 05:10 Alkaline Phosphatase 235 units/L (35-129) H 04/01/21 05:10 Total Creatine Kinase 32 units/L (30-135) 03/31/21 11:10 Total Creatine Kinase 32 units/L (30-135) 03/31/21 11:10 CK-MB (CK-2) 1.8 ng/mL (0.0-4.0) 03/31/21 11:10 CK-MB (CK-2) Rel Index 5.6 (0-4) H 03/31/21 11:10 Troponin T < 0.010 ng/mL (0.00-0.029) 03/31/21 11:10 Total Protein 6.2 g/dL (6.3-8.2) L 04/01/21 05:10 Albumin 3.2 g/dL (3.9-5) L 04/01/21 05:10 Albumin/Globulin Ratio 1.1 % 04/01/21 05:10 Triglycerides 151 mg/dL (2-149) H 04/01/21 05:10 Cholesterol 176 mg/dL (50-199) 04/01/21 05:10 LDL Cholesterol Direct 107 mg/dL (50-130) 04/01/21 05:10 HDL Cholesterol 28 mg/dL (40-59) L 04/01/21 05:10 Cholesterol/HDL Ratio 6.28 % 04/01/21 05:10 Vitamin B12 663.3 pg/mL (211-911) 03/31/21 11:10 Folate 2.17 ng/mL (7.3-26.0) L 03/31/21 11:10 TSH 1.060 mlU/mL (0.270-4.200) 03/31/21 11:10 HCG, Quant 0.891 mIU/mL (0-4) 03/31/21 11:10 Urine Color Yellow (Yellow) 03/31/21 21:00 Urine Turbidity Clear (Clear) 03/31/21 21:00 Urine pH 6.0 (5.0-7.0) 03/31/21 21:00 Ur Specific [place] 1.056 (1.003-1.030) H 03/31/21 21:00 Urine Protein <15 mg/dl mg/dL (Negative) 03/31/21 21:00 Urine Glucose (UA) Neg mg/dL (Negative) 03/31/21 21:00 Urine Ketones Neg mg/dL (Negative) 03/31/21 21:00 Urine Blood Sm (Negative) 03/31/21 21:00 Urine Nitrite Pos (Negative) 03/31/21 21:00 Urine Bilirubin Neg (Negative) 03/31/21 21:00 Urine Urobilinogen 4.0 mg/dL (<2.0) 03/31/21 21:00 Ur Leukocyte Esterase Tr (Negative) 03/31/21 21:00 Urine WBC (Auto) 4.0 /HPF (0.0-6.0) 03/31/21 21:00 Urine RBC (Auto) 2.0 /HPF (0.0-6.0) 03/31/21 21:00 U Epithel Cells (Auto) 1.0 /HPF (0-13.0) 03/31/21 21:00 Urine Mucus Few /HPF 03/31/21 21:00 Urine Opiates Screen Negative 03/31/21 21:00 Urine Methadone Screen Negative 03/31/21 21:00 Ur Barbiturates Screen Negative 03/31/21 21:00 Ur Phencyclidine Scrn Negative 03/31/21 21:00 Ur Amphetamines Screen Negative 03/31/21 21:00 U Benzodiazepines Scrn Negative 03/31/21 21:00 Urine Cocaine Screen Negative 03/31/21 21:00 U Marijuana (THC) Screen Positive 03/31/21 21:00 Drugs of Abuse Note Disclamer 03/31/21 21:00 Plasma/Serum Alcohol < 0.01 % (0-0.07) 03/31/21 11:10 Mcfadden/IV: Voiding Method Bedpan Active Medications - Current Medications Current Medications: Generic Name Dose Route Start Last Admin Trade Name Freq PRN Reason Stop Dose Admin Acetaminophen 650 mg 03/31/21 20:34 Acetaminophen 325 Mg Tab PO Q4H PRN Pain MILD(1-3)/Fever >100.5/MATHEWS Aspirin 325 mg 03/31/21 21:00 04/01/21 01:10 Aspirin 325 Mg Tab PO Not Given QDAY JONATHAN Atorvastatin Calcium 40 mg 03/31/21 22:00 04/01/21 01:48 Atorvastatin 40 Mg Tab PO 40 mg QHS JONATHAN Administration Chlordiazepoxide HCl 50 mg 03/31/21 11:24 Chlordiazepoxide 25 Mg Cap PO Q1HR PRN CIWA-Ar 8-15 Heparin Sodium (Porcine) 5,000 unit 03/31/21 22:00 04/01/21 01:48 Heparin 5,000 Unit/1 Ml Vial SUB-Q 5,000 unit Q12HR JONATHAN Administration Hydromorphone HCl 0.5 mg 03/31/21 20:34 Hydromorphone 1 Mg/1 Ml Inj IV Q3H PRN Pain , Severe (7-10) Sodium Chloride 1,000 mls @ 75 mls/hr 03/31/21 20:30 04/01/21 01:50 Nacl 0.9% 1000 Ml IV 75 mls/hr DIRECT JONATHAN Administration Levetiracetam 500 mg 03/31/21 22:00 04/01/21 01:48 Levetiracetam 500 Mg Tab PO 500 mg BID JONATHAN Administration Lorazepam 2 mg 03/31/21 11:24 Lorazepam 2 Mg/Ml Vial IV Q1HR PRN CIWA-Ar 8-15 Lorazepam 4 mg 03/31/21 11:24 Lorazepam 2 Mg/Ml Vial IV Q1HR PRN CIWA-Ar 16-25 Lorazepam 4 mg 03/31/21 11:24 Lorazepam 2 Mg/Ml Vial IV Q15MIN PRN CIWA-Ar >25 Metoclopramide HCl 10 mg 03/31/21 20:34 Metoclopramide 10 Mg/2 Ml Inj IV Q6H PRN Nausea And Vomiting Ondansetron HCl 4 mg 03/31/21 20:34 Ondansetron 4 Mg/2 Ml Inj IV Q8H PRN Nausea And Vomiting Oxycodone/Acetaminophen 1 tab 03/31/21 20:34 04/01/21 07:43 Oxycodone /Acetaminophen 5-325mg Tab PO 1 tab Q6H PRN Administration Pain, Moderate (4-6) Pantoprazole Sodium 40 mg 04/01/21 10:00 Pantoprazole 40 Mg Tab PO DAILY JONATHAN Sodium Chloride 10 ml 03/31/21 20:27 Sodium Chloride 0.9% 10 Ml Flush Syringe IV PRN PRN LINE FLUSH Sodium Chloride 10 ml 03/31/21 22:00 04/01/21 01:51 Sodium Chloride 0.9% 10 Ml Flush Syringe IV 10 ml BID JONATHAN Administration Sodium Chloride 10 ml 03/31/21 20:34 Sodium Chloride 0.9% 10 Ml Flush Syringe IV PRN PRN LINE FLUSH Spironolactone 50 mg 04/01/21 10:00 Spironolactone 50 Mg Tab PO QDAY JONATHAN
[2021-04-01] MEDS: SPIRONOLACTONE 50 MG TAB PO SCH (10:37)
[2021-04-01] MEDS: PANTOPRAZOLE 40 MG TAB PO SCH (10:38)
--- NOTE | 2021-04-01 10:59 | Magnetic Resonance Report ---
MR brain wo con INDICATION / CLINICAL INFORMATION: stroke. TECHNIQUE: Multiplanar, multisequence MR images of the brain were obtained. COMPARISON: CT head yesterday FINDINGS: INTRACRANIAL: No restricted diffusion. No hemorrhage. Ventricular caliber is normal. No extra-axial c ollection. No mass. No herniation. Major intracranial vascular flow voids are preserved. ORBITS: No significant abnormality of visualized orbits. SINUSES / MASTOIDS: Trace left mastoid effusion. Otherwise paranasal sinuses and mastoid air cells ar e essentially clear. ADDITIONAL FINDINGS: None. IMPRESSION: 1. No acute infarction. No significant intracranial abnormality. Signer Name: Yousuf Cespedes MD Signed: 04/01/2021 10:54 AM Workstation Name: [id number]
--- NOTE | 2021-04-01 11:47 | Electrocardiograph Report ---
[facility] Test Date: 2021-03-31 Test Time: 13:43:21 Pat Name: ROLANDO STRONG Department: Room: A480 Gender: F Language Interpreter: GARO : 1975 Requested By: FRANC MEDEIROS Order Number: [id number] Reading MD: Jakub Francisco Measurements Intervals [place] Rate: 96 P: 46 CA: 160 QRS: 15 QRSD: 73 T: 53 QT: 399 QTc: 499 Interpretive Statements Sinus rhythm Atrial premature complexes Probable LVH with secondary repol abnrm No previous ECG available for comparison Electronically Signed On 04-01-2021 11:47:47 EDT by Jakub Francisco
--- NOTE | 2021-04-01 12:49 | Consultation ---
History of Present Illness Consult date: 04/01/21 Reason for Consult: numbness and weakness lower extremities and hands with increase weakness History of present illness: Severe unsteady gait for 1 week History of present illness: 45-year-old female with history of seizures comes in for severe unsteady gait for the last 4 to 5 days. Gradual onset. Also blurry vision in the right eye. No chest pain. No CVA in the past. History of seizures present. No hyperten marcellus. Patient unable to stand straighter and walk. Very ataxic. No exacerbating or relieving factors today she still describing numbness and weakness in hands and unable to walk , this is on going for a week denied bladder problem or focal weakness denied skin rash or flu like symptoms denied GI problem she is with hx of alcoholism last drik is X2 days back she smokes cig. and marijuana in ER CT brain is unremarkable -CTA brain is unremarkable, CTA neck is suggestive of mild narrowing MRI brain is unremarkable Initial NIh#8 - Past Medical History Hx Seizures: Yes - Surgical History Additional Surgical History: - Social History Smoking Status: Current Every Day Smoker (we discussed tobacco cessation x3 minutes) - Medications Home Medications: Home Medications Medication Instructions Recorded Confirmed Last Taken Type Aldactone 50 mg PO DAILY 03/31/21 03/31/21 Unknown History Pantoprazole Sodium [Protonix] 40 mg PO DAILY 03/31/21 03/31/21 03/22/21 19:00 History levETIRAcetam [Keppra TAB] 500 mg PO BID 03/31/21 03/31/21 03/30/21 History Review of Systems ROS: Stated complaint: EYES BLURRY,CANT WALK Other details as noted in HPI Constitutional: malaise, weakness. denies: fever Eyes: vision change. denies: eye discharge ENT: denies: epistaxis Respiratory: denies: cough Cardiovascular: denies: chest pain Gastrointestinal: denies: abdominal pain, nausea, vomiting, diarrhea Genitourinary: denies: dysuria Neurological: headache, weakness, abnormal gait Psychiatric: anxiety Medications and Allergies Allergies Allergy/AdvReac Type Severity Reaction Status Date / Time No Known Allergies Allergy Verified 03/31/21 10:43 Home Medications Medication Instructions Recorded Confirmed Last Taken Type Aldactone 50 mg PO DAILY 03/31/21 03/31/21 Unknown History Pantoprazole Sodium [Protonix] 40 mg PO DAILY 03/31/21 03/31/21 03/22/21 19:00 History levETIRAcetam [Keppra TAB] 500 mg PO BID 03/31/21 03/31/21 03/30/21 History Active Meds: Active Medications Chlordiazepoxide HCl (Chlordiazepoxide 25 Mg Cap) 50 mg PO Q1HR PRN PRN Reason: CIWA-Ar 8-15 Lorazepam (Lorazepam 2 Mg/Ml Vial) 2 mg IV Q1HR PRN PRN Reason: CIWA-Ar 8-15 Lorazepam (Lorazepam 2 Mg/Ml Vial) 4 mg IV Q1HR PRN PRN Reason: CIWA-Ar 16-25 Lorazepam (Lorazepam 2 Mg/Ml Vial) 4 mg IV Q15MIN PRN PRN Reason: CIWA-Ar >25 Medications and Allergies Allergies Allergy/AdvReac Type Severity Reaction Status Date / Time No Known Allergies Allergy Verified 03/31/21 10:43 Home Medications Medication Instructions Recorded Confirmed Last Taken Type Aldactone 50 mg PO DAILY 03/31/21 03/31/21 Unknown History Pantoprazole Sodium [Protonix] 40 mg PO DAILY 03/31/21 03/31/21 03/22/21 19:00 History levETIRAcetam [Keppra TAB] 500 mg PO BID 03/31/21 03/31/21 03/30/21 History Active Meds: Active Medications Acetaminophen (Acetaminophen 325 Mg Tab) 650 mg PO Q4H PRN PRN Reason: Pain MILD(1-3)/Fever >100.5/MATHEWS Aspirin (Aspirin 325 Mg Tab) 325 mg PO QDAY [facility] Last Admin: 04/01/21 10:38 Dose: 325 mg Documented by: Atorvastatin Calcium (Atorvastatin 40 Mg Tab) 40 mg PO QHS [facility] Last Admin: 04/01/21 01:48 Dose: 40 mg Documented by: Chlordiazepoxide HCl (Chlordiazepoxide 25 Mg Cap) 50 mg PO Q1HR PRN PRN Reason: CIWA-Ar 8-15 Heparin Sodium (Porcine) (Heparin 5,000 Unit/1 Ml Vial) 5,000 unit SUB-Q Q12HR [facility] Last Admin: 04/01/21 10:38 Dose: 5,000 unit Documented by: Hydromorphone HCl (Hydromorphone 1 Mg/1 Ml Inj) 0.5 mg IV Q3H PRN PRN Reason: Pain , Severe (7-10) Sodium Chloride (Nacl 0.9% 1000 Ml) 1,000 mls @ 75 mls/hr IV DIRECT [facility] Last Admin: 04/01/21 01:50 Dose: 75 mls/hr Documented by: Levetiracetam (Levetiracetam 500 Mg Tab) 500 mg PO BID [facility] Last Admin: 04/01/21 10:37 Dose: 500 mg Documented by: Lorazepam (Lorazepam 2 Mg/Ml Vial) 2 mg IV Q1HR PRN PRN Reason: CIWA-Ar 8-15 Lorazepam (Lorazepam 2 Mg/Ml Vial) 4 mg IV Q1HR PRN PRN Reason: CIWA-Ar 16-25 Lorazepam (Lorazepam 2 Mg/Ml Vial) 4 mg IV Q15MIN PRN PRN Reason: CIWA-Ar >25 Metoclopramide HCl (Metoclopramide 10 Mg/2 Ml Inj) 10 mg IV Q6H PRN PRN Reason: Nausea And Vomiting Ondansetron HCl (Ondansetron 4 Mg/2 Ml Inj) 4 mg IV Q8H PRN PRN Reason: Nausea And Vomiting Oxycodone/Acetaminophen (Oxycodone /Acetaminophen 5-325mg Tab) 1 tab PO Q6H PRN PRN Reason: Pain, Moderate (4-6) Last Admin: 04/01/21 07:43 Dose: 1 tab Documented by: Pantoprazole Sodium (Pantoprazole 40 Mg Tab) 40 mg PO DAILY [facility] Last Admin: 04/01/21 10:38 Dose: 40 mg Documented by: Sodium Chloride (Sodium Chloride 0.9% 10 Ml Flush Syringe) 10 ml IV BID [facility] Last Admin: 04/01/21 01:51 Dose: 10 ml Documented by: Sodium Chloride (Sodium Chloride 0.9% 10 Ml Flush Syringe) 10 ml IV PRN PRN PRN Reason: LINE FLUSH Spironolactone (Spironolactone 50 Mg Tab) 50 mg PO QDAY [facility] Last Admin: 04/01/21 10:37 Dose: 50 mg Documented by: Physical Examination - Vital Signs Vital Signs: Vital Signs Temp Pulse Resp BP Pulse Ox 98.1 F 115 H 16 142/97 100 03/31/21 10:44 03/31/21 10:44 03/31/21 10:44 03/31/21 10:44 03/31/21 10:44 - Constitutional General appearance: uncomfortable - EENT EENT: Present: PERRL, mucous membranes moist - Respiratory Respiratory: Present: chest non-tender, lungs clear, rhonchi - Cardiovascular Cardiovascular: Present: regular rate, normal S1, normal S2 Extremities: Present: no peripheral edema bilatateraly - Gastrointestinal Gastrointestinal: Present: normoactive bowel sounds - Integumentary Integumentary: Present: normal - Neurologic Cranial nerve examination: anosmic, PERRL, EOMI, intact Speech examination: intact Sensorimotor examination: other (decrese pinsensation in feet and pain sensation is noted in both upper and lower also noted suppressed reflexes bilateral upper and lower position senxse is intact , gait unalble to do) Results - Laboratory Findings CBC and BMP: 04/01/21 05:10 04/01/21 05:10 Abnormal Lab Findings: Abnormal Labs 03/31/21 03/31/21 03/31/21 11:10 11:10 11:10 WBC 11.1 H RBC 2.79 L Hgb 9.5 L Hct 28.4 L MCV 102 H MCH 34 H RDW 18.0 H Plt Count 592 H Seg Neutrophils % 73.8 H Seg Neutrophils # 8.2 H APTT 39.9 H Sodium 135 L Potassium 2.7 L* Chloride 94.3 L Carbon Dioxide BUN 6 L Creatinine 0.4 L Glucose 124 H Magnesium AST 106 H Alkaline Phosphatase 249 H CK-MB (CK-2) Rel Index 5.6 H Total Protein Albumin 3.6 L Triglycerides HDL Cholesterol Folate Ur Specific [place] 03/31/21 03/31/21 03/31/21 11:10 11:10 21:00 WBC RBC Hgb Hct MCV MCH RDW Plt Count Seg Neutrophils % Seg Neutrophils # APTT Sodium Potassium Chloride Carbon Dioxide BUN Creatinine Glucose Magnesium 1.60 L AST Alkaline Phosphatase CK-MB (CK-2) Rel Index Total Protein Albumin Triglycerides HDL Cholesterol Folate 2.17 L Ur Specific [place] 1.056 H 04/01/21 04/01/21 05:10 05:10 WBC 13.3 H RBC 2.45 L Hgb 8.2 L Hct 25.3 L MCV 103 H MCH 34 H RDW 18.1 H Plt Count 531 H Seg Neutrophils % 71.3 H Seg Neutrophils # 9.5 H APTT Sodium 134 L Potassium Chloride Carbon Dioxide 21 L BUN 5 L Creatinine 0.3 L Glucose Magnesium AST 105 H Alkaline Phosphatase 235 H CK-MB (CK-2) Rel Index Total Protein 6.2 L Albumin 3.2 L Triglycerides 151 H HDL Cholesterol 28 L Folate Ur Specific [place] Assessment and Plan Assessment and Plan Advance Directives: Yes (Full code) VTE prophylaxis?: Chemical Plan of care discussed with patient/family: Yes - Patient Problems #Acute/subacute feet and upper extremities weakness and pain Xone week -unsteady gait related to above -Hx of alcoholism -R/O Acute demylinating neuropathy ,GB -Suggest LP -send for protein and glucose -cell count -B12 and tsh wnl - brain MRI is unremarkable -thiamin supplement -send for b1 level # Seizure disorder -Continue Keppra # Hypokalemia and Hypomagnesemia -Supplemented # Macrocytic anemia -Anemia work-up including folic acid and B12 levels # DVT prophylaxis -On anticoagulation and GI prophylaxis
--- NOTE | 2021-04-01 14:14 | Vascular Lab Report ---
DUPLEX DOPPLER ULTRASOUND CAROTID, BILATERAL INDICATION / CLINICAL INFORMATION: stroke. COMPARISON: None available. FINDINGS: RIGHT CAROTID: - PLAQUE ESTIMATE (%): < 50% - CCA velocity: 61 cm/sec. - ICA peak systolic velocity: 120 cm/sec. - ICA/CCA PSV Ratio: 1.98 Right Vertebral Artery: Antegrade flow. LEFT CAROTID: - PLAQUE ESTIMATE: < 50% - CCA velocity: 71 cm/sec. - ICA peak systolic velocity: 117 cm/sec. - ICA/CCA PSV Ratio: 1.65 Left Vertebral Artery: Antegrade flow. IMPRESSION: 1. Right Internal Carotid Artery: Less than 50% diameter stenosis. 2. Left Internal Carotid Artery: Less than 50% diameter stenosis. Velocity criteria are extrapolated from diameter data as defined by the Society of Radiologists in [facility] [place] Consensus Conference, Radiology 2003; 229;340-346. NO STENOSIS (NORMAL) * Plaque = none; ICA PSV < 125 cm/sec; ICA/CCA PSV Ratio < 2.0 <50% STENOSIS * Plaque < 50%; ICA PSV < 125 cm/sec; ICA/CCA PSV Ratio < 2.0 50-69% STENOSIS * Plaque > 50%; ICA PSV = 125-230 cm/sec; ICA/CCA PSV Ratio = 2.0-4.0 >70% BUT <100% STENOSIS * Plaque > 50%; ICA PSV > 230 cm/sec; ICA/CCA PSV Ratio > 4.0 NEAR OCCLUSION * Plaque = visible lumen; ICA PSV = high/low/none; ICA/CCA PSV Ratio = variable TOTAL OCCLUSION * Plaque = no lumen; ICA PSV = none; ICA/CCA PSV Ratio = N/A Signer Name: See Hannon MD Signed: 04/01/2021 2:09 PM Workstation Name: [email or web address]
[2021-04-01] MEDS: THIAMINE 300 MG in SODIUM CHLORIDE 0.9% 50 ML IV SCH (16:27)
[2021-04-01 18:03] LABS: INR 1.06 (0.87-1.13)
[2021-04-02] MEDS: hydrALAZINE 20 MG/1 ML INJ IV PRN (02:41)
[2021-04-02] MEDS: chlordiazePOXIDE 25 MG CAP PO PRN (02:42)
[2021-04-02 05:10] LABS: Hematocrit 23.8 % (30.3-42.9); Hemoglobin 7.9 gm/dl (10.1-14.3); Mean Corpuscular HGB Conc 33 % (30-34); Mean Corpuscular Volume 104 fl (79-97); Platelet Count 530 K/mm3 (140-440); Red Cell Distribution Width 17.7 % (13.2-15.2)
[2021-04-02 05:28] LABS: Alanine Aminotransferase 21 units/L (7-56); Blood Urea Nitrogen 4 mg/dL (7-17); Calcium 9.2 mg/dL (8.4-10.2); Hemolysis Index 0
[2021-04-02 05:30] LABS: BUN/Creatinine Ratio 10
[2021-04-02] MEDS: SPIRONOLACTONE 50 MG TAB PO SCH (10:32)
[2021-04-02] MEDS: PANTOPRAZOLE 40 MG TAB PO SCH (10:32)
[2021-04-02] MEDS: ASPIRIN 325 MG TAB PO SCH (10:32)
[2021-04-02] MEDS: levETIRAcetam 500 MG TAB PO SCH ×2 (10:32→21:46)
[2021-04-02] MEDS: HEPARIN 5,000 UNIT/1 ML VIAL SUB-Q SCH ×2 (10:33→21:45)
--- NOTE | 2021-04-02 10:39 | Progress Note ---
Assessment and Plan Assessment and plan: --Severe ataxia[ Current Visit: Yes Status: Acute Severe ataxia, generalized weakness Patient unable to stand and walk Gets very unsteady, fall precautions Neurology evaluation noted and appreciated Neuro work-up is in progress MRI brain could not be ordered because of restriction Neuro work-up so far; CT head without contrast; no focal mass hemorrhage hydrocephalus or acute infarct work-up so far CTA neck; no dominant stenosis appreciated on CT of the neck Mild narrowing of internal carotid artery seen in the s symmetric fashion CTA head; no significant abnormality Carotid Doppler; less than 50% stenosis bilateral Echo ; LV systolic function normal EF 60 to 65%, No PFO MRI brain; no acute infarction no significant intracranial abnormality Fluoroscopy lumbar puncture [04/02/2021] fluid analysis pending --Acute/subacute lower and upper extremities weakness ; Current Visit: Yes Status: Acute Neurology evaluation noted and appreciated Neuro work-up reviewed s/pfluoroscopy-guided lumbar puncture today Diagnosis demyelinating disease ? GB syndrome CSF analysis for protein, glucose, cell count, requested Neurology considering IVIG pending CSF analysis -- h/oSeizure disorder Current Visit: Yes Status: Chronic Seizure precautions ,continue Keppra Ativan as needed, do not drive until cleared by neurology/PMD --Hypokalemia Current Visit: Yes Status: Acute Supplemented, monitor electrolytes Potassium levels within normal limits --Hypomagnesemia Current Visit: Yes Status: Acute Supplemented, monitor electrolytes -- Macrocytic anemia Current Visit: Yes Status: Chronic B12 within normal limits Folate levels low, supplement with folic acid Closely monitor --Recreational drug use/marijuana; Advised to quit marijuana --DVT prophylaxis Current Visit: Yes Status: Acute On anticoagulation and GI prophylaxis Neurology evaluation noted and appreciated We will closely monitor patient and adjust management as needed Plan of care reviewed with the patient and the nurse 04/01/2021; Fall precautions Seizure precautions Follow neuro work-up MRI brain Follow lumbar puncture procedure and CSF analysis Follow neuro recommendations 04/02/2021; patient underwent extensive neuro work-up as mentioned above Fluoroscopy-guided lumbar puncture done today, fluid sent for analysis. Follow fluid analysis, follow neuro recommendations History Interval history: I have seen and examined the patient at the bedside Patient's chart and medications reviewed Patient complains of generalized weakness upper and lower extremities Underwent lumbar puncture, CSF fluid sent for analysis Patient complains of generalized weakness mainly upper and lower extremities Hospitalist Physical - Constitutional Vitals: Temp Pulse Resp BP Pulse Ox 98.0 F 111 H 18 148/107 99 04/02/21 07:55 04/02/21 07:55 04/02/21 07:55 04/02/21 07:55 04/02/21 07:55 General appearance: Present: no acute distress, well-nourished, other (Generalized weakness upper and lower extremities) - EENT Eyes: Present: PERRL, EOM intact - Neck Neck: Present: supple, normal ROM - Respiratory Respiratory effort: normal Respiratory: bilateral: diminished, negative: rales, rhonchi, wheezing - Cardiovascular Rhythm: regular Heart Sounds: Present: S1 & S2 - Extremities Extremities: abnormal (Generalized weakness both upper and lower extremity) - Abdominal General gastrointestinal: soft, non-tender, non-distended, normal bowel sounds - Integumentary Integumentary: Present: clear, warm - Psychiatric Psychiatric: appropriate mood/affect, cooperative - Neurologic Neurologic: moves all extremities HEART Score - HEART Score Troponin: Troponin T < 0.010 ng/mL (0.00-0.029) 03/31/21 11:10 Results - Labs CBC & Chem 7: 04/02/21 08:57 04/02/21 04:45 Labs: Laboratory Last Values WBC 13.0 K/mm3 (4.5-11.0) H 04/02/21 04:45 RBC 2.30 M/mm3 (3.65-5.03) L 04/02/21 04:45 Hgb 7.9 gm/dl (10.1-14.3) L 04/02/21 04:45 Hct 23.8 % (30.3-42.9) L 04/02/21 04:45 MCV 104 fl (79-97) H 04/02/21 04:45 MCH 34 pg (28-32) H 04/02/21 04:45 MCHC 33 % (30-34) 04/02/21 04:45 RDW 17.7 % (13.2-15.2) H 04/02/21 04:45 Plt Count 534 K/mm3 (140-440) H 04/02/21 08:57 Lymph % (Auto) 20.0 % (13.4-35.0) 04/01/21 05:10 [place] % (Auto) 5.8 % (0.0-7.3) 04/01/21 05:10 Eos % (Auto) 2.3 % (0.0-4.3) 04/01/21 05:10 Baso % (Auto) 0.6 % (0.0-1.8) 04/01/21 05:10 Lymph # (Auto) 2.7 K/mm3 (1.2-5.4) 04/01/21 05:10 [place] # (Auto) 0.8 K/mm3 (0.0-0.8) 04/01/21 05:10 Eos # (Auto) 0.3 K/mm3 (0.0-0.4) 04/01/21 05:10 Baso # (Auto) 0.1 K/mm3 (0.0-0.1) 04/01/21 05:10 Seg Neutrophils % 71.3 % (40.0-70.0) H 04/01/21 05:10 Seg Neutrophils # 9.5 K/mm3 (1.8-7.7) H 04/01/21 05:10 PT 14.3 Sec. (12.2-14.9) 04/01/21 17:16 INR 1.06 (0.87-1.13) 04/01/21 17:16 APTT 39.9 Sec. (24.2-36.6) H 03/31/21 11:10 Thrombin Time 18.6 Sec. (15.1-19.6) 03/31/21 11:10 Sodium 138 mmol/L (137-145) 04/02/21 04:45 Potassium 4.4 mmol/L (3.6-5.0) 04/02/21 04:45 Chloride 106.1 mmol/L (98-107) 04/02/21 04:45 Carbon Dioxide 22 mmol/L (22-30) 04/02/21 04:45 Anion Gap 14 mmol/L 04/02/21 04:45 BUN 4 mg/dL (7-17) L 04/02/21 04:45 Creatinine 0.4 mg/dL (0.6-1.2) L 04/02/21 04:45 Estimated GFR > 60 ml/min 04/02/21 04:45 BUN/Creatinine Ratio 10 % 04/02/21 04:45 Glucose 84 mg/dL (65-100) 04/02/21 04:45 Calcium 9.2 mg/dL (8.4-10.2) 04/02/21 04:45 Phosphorus 2.10 mg/dL (2.5-4.5) L 04/02/21 04:45 Magnesium 1.50 mg/dL (1.7-2.3) L 04/02/21 04:45 Total Bilirubin 0.40 mg/dL (0.1-1.2) 04/02/21 04:45 AST 82 units/L (5-40) H 04/02/21 04:45 ALT 21 units/L (7-56) 04/02/21 04:45 Alkaline Phosphatase 231 units/L (35-129) H 04/02/21 04:45 Total Creatine Kinase 32 units/L (30-135) 03/31/21 11:10 Total Creatine Kinase 32 units/L (30-135) 03/31/21 11:10 CK-MB (CK-2) 1.8 ng/mL (0.0-4.0) 03/31/21 11:10 CK-MB (CK-2) Rel Index 5.6 (0-4) H 03/31/21 11:10 Troponin T < 0.010 ng/mL (0.00-0.029) 03/31/21 11:10 Total Protein 6.0 g/dL (6.3-8.2) L 04/02/21 04:45 Albumin 3.0 g/dL (3.9-5) L 04/02/21 04:45 Albumin/Globulin Ratio 1.0 % 04/02/21 04:45 Triglycerides 151 mg/dL (2-149) H 04/01/21 05:10 Cholesterol 176 mg/dL (50-199) 04/01/21 05:10 LDL Cholesterol Direct 107 mg/dL (50-130) 04/01/21 05:10 HDL Cholesterol 28 mg/dL (40-59) L 04/01/21 05:10 Cholesterol/HDL Ratio 6.28 % 04/01/21 05:10 Vitamin B12 663.3 pg/mL (211-911) 03/31/21 11:10 Folate 2.17 ng/mL (7.3-26.0) L 03/31/21 11:10 TSH 1.060 mlU/mL (0.270-4.200) 03/31/21 11:10 HCG, Quant 0.891 mIU/mL (0-4) 03/31/21 11:10 Urine Color Yellow (Yellow) 03/31/21 21:00 Urine Turbidity Clear (Clear) 03/31/21 21:00 Urine pH 6.0 (5.0-7.0) 03/31/21 21:00 Ur Specific [place] 1.056 (1.003-1.030) H 03/31/21 21:00 Urine Protein <15 mg/dl mg/dL (Negative) 03/31/21 21:00 Urine Glucose (UA) Neg mg/dL (Negative) 03/31/21 21:00 Urine Ketones Neg mg/dL (Negative) 03/31/21 21:00 Urine Blood Sm (Negative) 03/31/21 21:00 Urine Nitrite Pos (Negative) 03/31/21 21:00 Urine Bilirubin Neg (Negative) 03/31/21 21:00 Urine Urobilinogen 4.0 mg/dL (<2.0) 03/31/21 21:00 Ur Leukocyte Esterase Tr (Negative) 03/31/21 21:00 Urine WBC (Auto) 4.0 /HPF (0.0-6.0) 03/31/21 21:00 Urine RBC (Auto) 2.0 /HPF (0.0-6.0) 03/31/21 21:00 U Epithel Cells (Auto) 1.0 /HPF (0-13.0) 03/31/21 21:00 Urine Mucus Few /HPF 03/31/21 21:00 Urine Opiates Screen Negative 03/31/21 21:00 Urine Methadone Screen Negative 03/31/21 21:00 Ur Barbiturates Screen Negative 03/31/21 21:00 Ur Phencyclidine Scrn Negative 03/31/21 21:00 Ur Amphetamines Screen Negative 03/31/21 21:00 U Benzodiazepines Scrn Negative 03/31/21 21:00 Urine Cocaine Screen Negative 03/31/21 21:00 U Marijuana (THC) Screen Positive 03/31/21 21:00 Drugs of Abuse Note Disclamer 03/31/21 21:00 Plasma/Serum Alcohol < 0.01 % (0-0.07) 03/31/21 11:10 [place]/IV: Voiding Method Bedpan Active Medications - Current Medications Current Medications: Generic Name Dose Route Start Last Admin Trade Name Freq PRN Reason Stop Dose Admin Acetaminophen 650 mg 03/31/21 20:34 Acetaminophen 325 Mg Tab PO Q4H PRN Pain MILD(1-3)/Fever >100.5/MATHEWS Aspirin 325 mg 03/31/21 21:00 04/02/21 10:32 Aspirin 325 Mg Tab PO 325 mg QDAY JONATHAN Administration Atorvastatin Calcium 40 mg 03/31/21 22:00 04/01/21 21:42 Atorvastatin 40 Mg Tab PO 40 mg QHS JONATHAN Administration Chlordiazepoxide HCl 50 mg 03/31/21 11:24 04/02/21 02:42 Chlordiazepoxide 25 Mg Cap PO 50 mg Q1HR PRN Administration DONNIE-Gurjit 8- Heparin Sodium (Porcine) 5,000 unit 03/31/21 22:00 04/02/21 10:33 Heparin 5,000 Unit/1 Ml Vial SUB-Q 5,000 unit Q12HR JONATHAN Administration Hydralazine HCl 10 mg 04/02/21 01:22 04/02/21 02:41 Hydralazine 20 Mg/1 Ml Inj IV 10 mg Q6H PRN Administration Blood Pressure Hydromorphone HCl 0.5 mg 03/31/21 20:34 Hydromorphone 1 Mg/1 Ml Inj IV Q3H PRN Pain , Severe (7-10) Sodium Chloride 1,000 mls @ 75 mls/hr 03/31/21 20:30 04/01/21 18:26 Nacl 0.9% 1000 Ml IV 75 mls/hr DIRECT JONATHAN Administration Thiamine HCl 300 mg/ Sodium 53 mls @ 100 mls/hr 04/01/21 13:00 04/01/21 16:27 Chloride IV 04/04/21 23:59 100 mls/hr QDAY JONATHAN Administration Levetiracetam 500 mg 03/31/21 22:00 04/02/21 10:32 Levetiracetam 500 Mg Tab PO 500 mg BID JONATHAN Administration Lorazepam 2 mg 03/31/21 11:24 04/01/21 21:42 Lorazepam 2 Mg/Ml Vial IV 2 mg Q1HR PRN Administration DONNIE-Gurjit 8-15 Lorazepam 4 mg 03/31/21 11:24 04/02/21 01:16 Lorazepam 2 Mg/Ml Vial IV 4 mg Q1HR PRN Administration CIWA-Ar 16-25 Lorazepam 4 mg 03/31/21 11:24 Lorazepam 2 Mg/Ml Vial IV Q15MIN PRN CIWA-Ar >25 Metoclopramide HCl 10 mg 03/31/21 20:34 Metoclopramide 10 Mg/2 Ml Inj IV Q6H PRN Nausea And Vomiting Ondansetron HCl 4 mg 03/31/21 20:34 Ondansetron 4 Mg/2 Ml Inj IV Q8H PRN Nausea And Vomiting Oxycodone/Acetaminophen 1 tab 03/31/21 20:34 04/01/21 14:08 Oxycodone /Acetaminophen 5-325mg Tab PO 1 tab Q6H PRN Administration Pain, Moderate (4-6) Pantoprazole Sodium 40 mg 04/01/21 10:00 04/02/21 10:32 Pantoprazole 40 Mg Tab PO 40 mg DAILY JONATHAN Administration Sodium Chloride 10 ml 03/31/21 22:00 04/02/21 10:32 Sodium Chloride 0.9% 10 Ml Flush Syringe IV Not Given BID JONATHAN Sodium Chloride 10 ml 03/31/21 20:34 Sodium Chloride 0.9% 10 Ml Flush Syringe IV PRN PRN LINE FLUSH Spironolactone 50 mg 04/01/21 10:00 04/02/21 10:32 Spironolactone 50 Mg Tab PO 50 mg QDAY JONATHAN Administration
[2021-04-02] MEDS ORDERED: LIDOCAINE (1%) 10 MG/1 ML VIAL 20 ML MDV ONE (11:46)
--- NOTE | 2021-04-02 12:05 | Progress Note ---
Assessment and Plan Assessment and Plan Advance Directives: Yes (Full code) VTE prophylaxis?: Chemical Plan of care discussed with patient/family: Yes - Patient Problems #Acute/subacute feet and upper extremities weakness and pain Xone week -unsteady gait related to above -Hx of alcoholism -R/O Acute demylinating neuropathy ,GB -Suggest LP still on hold -send for protein and glucose -cell count -B12 and tsh wnl - brain MRI is unremarkable -thiamin supplement -send for b1 level -Consider start IV IG today if LP can not be done -Avoid sedation -suggest NIF daily by respiratory therapy Q shift if< 600 CC consider transfer to ICU -Send for IGA titer stat # Seizure disorder -Continue Keppra # Hypokalemia and Hypomagnesemia -Supplemented # Macrocytic anemia -Anemia work-up including folic acid and B12 levels # DVT prophylaxis -On anticoagulation and GI prophylaxis will follow Subjective Date of service: 04/02/21 Principal diagnosis: weakness Interval history: she is slightly sleepy today after she got ativan at night due to agtation she is weaker in upper and lower no clear cranial nerves involvment but she is sleepy and is difficult to assess LP still on hold Objective - Vital Sign Vital Signs - 12hr 04/02/21 04/02/21 04/02/21 02:00 03:00 03:30 Temperature 97.8 F Pulse Rate 104 H 114 H Respiratory 16 Rate Blood Pressure 178/126 O2 Sat by Pulse 96 100 Oximetry 04/02/21 04/02/21 04:11 07:55 Temperature 98.9 F 98.0 F Pulse Rate 106 H 111 H Respiratory 18 18 Rate Blood Pressure 106/73 148/107 O2 Sat by Pulse 100 99 Oximetry - General Apperance Constitutional: comfortable - EENT EENT: PERRL, mucous membranes moist - Respiratory Respiratory: chest non-tender, lungs clear, rhonchi - Cardiovascular Cardiovascular: regular rate, normal S1, normal S2 Extremities: no peripheral edema bilat, no clubbing, cyanosis - Gastrointestinal Gastrointestinal: normoactive bowel sounds - Integumentary Integumentary: normal - Neurologic Cranial nerve examination: PERRL, EOMI Speech examination: other (slurred) Detailed motor examination: other (diffuse weakness some what is worse , 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 upper and lower, ) - Laboratory Findings CBC and BMP: 04/02/21 08:57 04/02/21 04:45 Abnormal Lab Findings: Abnormal Labs 03/31/21 03/31/21 03/31/21 11:10 11:10 11:10 WBC 11.1 H RBC 2.79 L Hgb 9.5 L Hct 28.4 L MCV 102 H MCH 34 H RDW 18.0 H Plt Count 592 H Seg Neutrophils % 73.8 H Seg Neutrophils # 8.2 H APTT 39.9 H Sodium 135 L Potassium 2.7 L* Chloride 94.3 L Carbon Dioxide BUN 6 L Creatinine 0.4 L Glucose 124 H Phosphorus Magnesium AST 106 H Alkaline Phosphatase 249 H CK-MB (CK-2) Rel Index 5.6 H Total Protein Albumin 3.6 L Triglycerides HDL Cholesterol Folate Ur Specific [place] 03/31/21 03/31/21 03/31/21 11:10 11:10 21:00 WBC RBC Hgb Hct MCV MCH RDW Plt Count Seg Neutrophils % Seg Neutrophils # APTT Sodium Potassium Chloride Carbon Dioxide BUN Creatinine Glucose Phosphorus Magnesium 1.60 L AST Alkaline Phosphatase CK-MB (CK-2) Rel Index Total Protein Albumin Triglycerides HDL Cholesterol Folate 2.17 L Ur Specific [place] 1.056 H 04/01/21 04/01/21 04/01/21 05:10 05:10 17:16 WBC 13.3 H RBC 2.45 L Hgb 8.2 L Hct 25.3 L MCV 103 H MCH 34 H RDW 18.1 H Plt Count 531 H 671 H Seg Neutrophils % 71.3 H Seg Neutrophils # 9.5 H APTT Sodium 134 L Potassium Chloride Carbon Dioxide 21 L BUN 5 L Creatinine 0.3 L Glucose Phosphorus Magnesium AST 105 H Alkaline Phosphatase 235 H CK-MB (CK-2) Rel Index Total Protein 6.2 L Albumin 3.2 L Triglycerides 151 H HDL Cholesterol 28 L Folate Ur Specific [place] 04/02/21 04/02/21 04/02/21 04:45 04:45 08:57 WBC 13.0 H RBC 2.30 L Hgb 7.9 L Hct 23.8 L MCV 104 H MCH 34 H RDW 17.7 H Plt Count 530 H 534 H Seg Neutrophils % Seg Neutrophils # APTT Sodium Potassium Chloride Carbon Dioxide BUN 4 L Creatinine 0.4 L Glucose Phosphorus 2.10 L Magnesium 1.50 L AST 82 H Alkaline Phosphatase 231 H CK-MB (CK-2) Rel Index Total Protein 6.0 L Albumin 3.0 L Triglycerides HDL Cholesterol Folate Ur Specific [place]
[2021-04-02 12:53] LABS: INR 1.08 (0.87-1.13)
[2021-04-02 12:54] LABS: Partial Thromboplastin Time 39.1 Sec. (24.2-36.6)
--- NOTE | 2021-04-02 13:50 | Fluoroscopy Report ---
FLUOROSCOPIC GUIDED LUMBAR PUNCTURE INDICATION: Possible [place] syndrome, altered mental status, decreased ability to walk COMPARISON: MR brain 04/01/2021 FLUOROSCOPY TIME: 4 minutes, one image CONSENT: Due to patient's altered mental status, I discussed the procedure at length with the patient 's sister by phone including possible risks and benefits. She gave informed consent to me and the whit hnologist. PROCEDURE: Under fluoroscopic guidance a suitable area at the L2-3 level was selected in an oblique p osition. Site was prepped and draped in the usual fashion. [place] local anesthetic was administered using 1% lidocaine. Under fluoroscopic guidance a 22-gauge spinal needle was introduced into the spin al canal. Approximate 7 cc of clear spinal fluid were obtained with only the first cc being slightly blood-tinged. This was sent to lab for ordered testing. Needle was removed and the site was secured. Patient tolerated procedure well and was sent back to the floor in good condition. IMPRESSION: Successful fluoroscopic-guided lumbar puncture Signer Name: Prabhu Ruiz MD Signed: 04/02/2021 1:45 PM Workstation Name: [id number]
[2021-04-02 15:55] LABS: Total Protein,Body Fluid TNR (15.0-45.0)
[2021-04-02 15:58] LABS: Glucose,CSF 59 mg/dL
[2021-04-02 21:34] LABS: Appearance,CSF Clear; Red Blood Cell,CSF 13.2 /mm3 (0-0); Red Blood Cell,CSF 4075 /mm3 (0-0); White Blood Cell,CSF 1.1 /mm3 (1-10); White Blood Cell,CSF 5 /mm3 (1-10)
[2021-04-02 21:43] LABS: Basophils CSF 0 %
[2021-04-02 22:43] LABS: Basophils CSF 0 %; Total Cells Counted 31 /mm3
[2021-04-03] MEDS: SODIUM CHLORIDE 0.9% 1000 ML 1,000 ML IV SCH (04:41)
[2021-04-03] MEDS: hydrALAZINE 20 MG/1 ML INJ IV PRN (06:57)
[2021-04-03] MEDS: oxyCODONE /ACETAMINOPHEN 5-325MG TAB PO PRN (07:01)
[2021-04-03] MEDS ORDERED: IMMUNE GLOBULIN G/GLY/IGA AVG 46 10 GM/100 ML VIAL IV SCH (10:00)
[2021-04-03] MEDS: ASPIRIN 325 MG TAB PO SCH (10:20)
[2021-04-03] MEDS: SPIRONOLACTONE 50 MG TAB PO SCH (10:20)
[2021-04-03] MEDS: levETIRAcetam 500 MG TAB PO SCH ×2 (10:20→21:53)
[2021-04-03] MEDS: PANTOPRAZOLE 40 MG TAB PO SCH (10:21)
[2021-04-03] MEDS: HEPARIN 5,000 UNIT/1 ML VIAL SUB-Q SCH ×2 (10:21→21:53)
[2021-04-03] MEDS: chlordiazePOXIDE 25 MG CAP PO PRN (10:21)
--- NOTE | 2021-04-03 10:48 | Progress Note ---
Assessment and Plan Assessment and plan: --Severe ataxia[ Current Visit: Yes Status: Acute Severe ataxia, generalized weakness Patient unable to stand and walk Gets very unsteady, fall precautions Neurology evaluation noted and appreciated Neuro work-up is in progress Neuro work-up so far; CT head without contrast; no focal mass hemorrhage hydrocephalus or acute infarct work-up so far CTA neck; no dominant stenosis appreciated on CT of the neck Mild narrowing of internal carotid artery seen in the s symmetric fashion CTA head; no significant abnormality Carotid Doppler; less than 50% stenosis bilateral Echo ; LV systolic function normal EF 60 to 65%, No PFO MRI brain; no acute infarction no significant intracranial abnormality Fluoroscopy lumbar puncture [04/02/2021] fluid analysis reports reviewed --Acute/subacute lower and upper extremities weakness ; Current Visit: Yes Status: Acute s/pfluoroscopy-guided lumbar puncture Diagnosis demyelinating disease ? GB syndrome CSF analysis for protein, glucose, cell count, requested CSF analysis reports reviewed Neurology advised and ordered IVIG daily for 4 days Respiratory therapist closely monitoring -- h/oSeizure disorder Current Visit: Yes Status: Chronic Seizure precautions ,continue Keppra Ativan as needed, do not drive until cleared by neurology/PMD --Hypokalemia Current Visit: Yes Status: Acute Supplemented, monitor electrolytes Potassium levels within normal limits --Hypomagnesemia Current Visit: Yes Status: Acute Supplemented, monitor electrolytes -- Macrocytic anemia Current Visit: Yes Status: Chronic B12 within normal limits Folate levels low, supplement with folic acid Closely monitor --Recreational drug use/marijuana; Advised to quit marijuana --DVT prophylaxis Current Visit: Yes Status: Acute On anticoagulation and GI prophylaxis Neurology evaluation noted and appreciated We will closely monitor patient and adjust management as needed Plan of care reviewed with the patient and the nurse 04/01/2021; Fall precautions Seizure precautions Follow neuro work-up MRI brain Follow lumbar puncture procedure and CSF analysis Follow neuro recommendations 04/02/2021; patient underwent extensive neuro work-up as mentioned above Fluoroscopy-guided lumbar puncture done today, fluid sent for analysis. Follow fluid analysis, follow neuro recommendations 04/03/2021; CSF analysis report reviewed Neurology started the patient on IV Ig Respiratory therapist closely monitoring History Interval history: I have seen and examined the patient at the bedside Patient's chart and medications reviewed Patient feels slightly better able to move lower and upper extremities Hospitalist Physical - Constitutional Vitals: Temp Pulse Resp BP Pulse Ox 98.1 F 107 H 18 138/113 99 04/03/21 04:35 04/03/21 04:35 04/03/21 04:35 04/03/21 04:35 04/03/21 04:35 General appearance: Present: no acute distress, well-nourished, other (Upper and lower extremity weakness slightly improved) - EENT Eyes: Present: PERRL, EOM intact - Neck Neck: Present: supple, normal ROM - Respiratory Respiratory effort: normal Respiratory: bilateral: diminished, negative: rales, rhonchi, wheezing - Cardiovascular Rhythm: regular Heart Sounds: Present: S1 & S2 - Extremities Extremities: no ischemia, pulses intact - Abdominal General gastrointestinal: soft, non-tender, non-distended, normal bowel sounds - Integumentary Integumentary: Present: clear, warm - Psychiatric Psychiatric: appropriate mood/affect, cooperative - Neurologic Neurologic: other (Weakness upper and lower extremities, slightly better than before) HEART Score - HEART Score Troponin: Troponin T < 0.010 ng/mL (0.00-0.029) 03/31/21 11:10 Results - Labs CBC & Chem 7: 04/02/21 08:57 04/02/21 04:45 Labs: Laboratory Last Values WBC 13.0 K/mm3 (4.5-11.0) H 04/02/21 04:45 RBC 2.30 M/mm3 (3.65-5.03) L 04/02/21 04:45 Hgb 7.9 gm/dl (10.1-14.3) L 04/02/21 04:45 Hct 23.8 % (30.3-42.9) L 04/02/21 04:45 MCV 104 fl (79-97) H 04/02/21 04:45 MCH 34 pg (28-32) H 04/02/21 04:45 MCHC 33 % (30-34) 04/02/21 04:45 RDW 17.7 % (13.2-15.2) H 04/02/21 04:45 Plt Count 534 K/mm3 (140-440) H 04/02/21 08:57 Lymph % (Auto) 20.0 % (13.4-35.0) 04/01/21 05:10 [place] % (Auto) 5.8 % (0.0-7.3) 04/01/21 05:10 Eos % (Auto) 2.3 % (0.0-4.3) 04/01/21 05:10 Baso % (Auto) 0.6 % (0.0-1.8) 04/01/21 05:10 Lymph # (Auto) 2.7 K/mm3 (1.2-5.4) 04/01/21 05:10 [place] # (Auto) 0.8 K/mm3 (0.0-0.8) 04/01/21 05:10 Eos # (Auto) 0.3 K/mm3 (0.0-0.4) 04/01/21 05:10 Baso # (Auto) 0.1 K/mm3 (0.0-0.1) 04/01/21 05:10 Add Manual Diff Complete 04/02/21 04:45 Seg Neutrophils % 71.3 % (40.0-70.0) H 04/01/21 05:10 Nucleated RBC % Not Reportable 04/02/21 04:45 Seg Neutrophils # 9.5 K/mm3 (1.8-7.7) H 04/01/21 05:10 WBC Morphology Not Reportable 04/02/21 04:45 Hypersegmented Neuts Not Reportable 04/02/21 04:45 Hyposegmented Neuts Not Reportable 04/02/21 04:45 Hypogranular Neuts Not Reportable 04/02/21 04:45 Smudge Cells Not Reportable 04/02/21 04:45 Toxic Granulation Not Reportable 04/02/21 04:45 Toxic Vacuolation Not Reportable 04/02/21 04:45 Dohle Bodies Not Reportable 04/02/21 04:45 [place]uet Anomaly Not Reportable 04/02/21 04:45 [place] Rods Not Reportable 04/02/21 04:45 Platelet Estimate Not Reportable 04/02/21 04:45 Clumped Platelets Not Reportable 04/02/21 04:45 Plt Clumps, EDTA Not Reportable 04/02/21 04:45 Large Platelets Not Reportable 04/02/21 04:45 Giant Platelets Not Reportable 04/02/21 04:45 Platelet Satelliting Not Reportable 04/02/21 04:45 Plt Morphology Comment Not Reportable 04/02/21 04:45 RBC Morphology Not Reportable 04/02/21 04:45 Dimorphic RBCs Not Reportable 04/02/21 04:45 Polychromasia Not Reportable 04/02/21 04:45 Hypochromasia Not Reportable 04/02/21 04:45 Poikilocytosis Not Reportable 04/02/21 04:45 Anisocytosis Not Reportable 04/02/21 04:45 Microcytosis Not Reportable 04/02/21 04:45 Macrocytosis Not Reportable 04/02/21 04:45 Spherocytes Not Reportable 04/02/21 04:45 Pappenheimer Bodies Not Reportable 04/02/21 04:45 Sickle Cells Not Reportable 04/02/21 04:45 Target Cells Not Reportable 04/02/21 04:45 Tear Drop Cells Not Reportable 04/02/21 04:45 Ovalocytes Not Reportable 04/02/21 04:45 Helmet Cells Not Reportable 04/02/21 04:45 [place] Bodies Not Reportable 04/02/21 04:45 [place] Rings Not Reportable 04/02/21 04:45 [place] Cells Not Reportable 04/02/21 04:45 Bite Cells Not Reportable 04/02/21 04:45 Crenated Cell Not Reportable 04/02/21 04:45 Elliptocytes Not Reportable 04/02/21 04:45 Acanthocytes (Spur) Not Reportable 04/02/21 04:45 Rouleaux Not Reportable 04/02/21 04:45 Hemoglobin C Crystals Not Reportable 04/02/21 04:45 Schistocytes Not Reportable 04/02/21 04:45 Malaria parasites Not Reportable 04/02/21 04:45 Robbi Bodies Not Reportable 04/02/21 04:45 Hem Pathologist Commnt No 04/02/21 04:45 PT 14.5 Sec. (12.2-14.9) 04/02/21 08:57 INR 1.08 (0.87-1.13) 04/02/21 08:57 APTT 39.1 Sec. (24.2-36.6) H 04/02/21 08:57 Thrombin Time 18.6 Sec. (15.1-19.6) 03/31/21 11:10 Sodium 138 mmol/L (137-145) 04/02/21 04:45 Potassium 4.4 mmol/L (3.6-5.0) 04/02/21 04:45 Chloride 106.1 mmol/L (98-107) 04/02/21 04:45 Carbon Dioxide 22 mmol/L (22-30) 04/02/21 04:45 Anion Gap 14 mmol/L 04/02/21 04:45 BUN 4 mg/dL (7-17) L 04/02/21 04:45 Creatinine 0.4 mg/dL (0.6-1.2) L 04/02/21 04:45 Estimated GFR > 60 ml/min 04/02/21 04:45 BUN/Creatinine Ratio 10 % 04/02/21 04:45 Glucose 84 mg/dL (65-100) 04/02/21 04:45 Calcium 9.2 mg/dL (8.4-10.2) 04/02/21 04:45 Phosphorus 2.10 mg/dL (2.5-4.5) L 04/02/21 04:45 Magnesium 1.50 mg/dL (1.7-2.3) L 04/02/21 04:45 Total Bilirubin 0.40 mg/dL (0.1-1.2) 04/02/21 04:45 AST 82 units/L (5-40) H 04/02/21 04:45 ALT 21 units/L (7-56) 04/02/21 04:45 Alkaline Phosphatase 231 units/L (35-129) H 04/02/21 04:45 Total Creatine Kinase 32 units/L (30-135) 03/31/21 11:10 Total Creatine Kinase 32 units/L (30-135) 03/31/21 11:10 CK-MB (CK-2) 1.8 ng/mL (0.0-4.0) 03/31/21 11:10 CK-MB (CK-2) Rel Index 5.6 (0-4) H 03/31/21 11:10 Troponin T < 0.010 ng/mL (0.00-0.029) 03/31/21 11:10 Total Protein 6.0 g/dL (6.3-8.2) L 04/02/21 04:45 Albumin 3.0 g/dL (3.9-5) L 04/02/21 04:45 Albumin/Globulin Ratio 1.0 % 04/02/21 04:45 Triglycerides 151 mg/dL (2-149) H 04/01/21 05:10 Cholesterol 176 mg/dL (50-199) 04/01/21 05:10 LDL Cholesterol Direct 107 mg/dL (50-130) 04/01/21 05:10 HDL Cholesterol 28 mg/dL (40-59) L 04/01/21 05:10 Cholesterol/HDL Ratio 6.28 % 04/01/21 05:10 Vitamin B12 663.3 pg/mL (211-911) 03/31/21 11:10 Folate 2.17 ng/mL (7.3-26.0) L 03/31/21 11:10 TSH 1.060 mlU/mL (0.270-4.200) 03/31/21 11:10 HCG, Quant 0.891 mIU/mL (0-4) 03/31/21 11:10 Urine Color Yellow (Yellow) 03/31/21 21:00 Urine Turbidity Clear (Clear) 03/31/21 21:00 Urine pH 6.0 (5.0-7.0) 03/31/21 21:00 Ur Specific [place] 1.056 (1.003-1.030) H 03/31/21 21:00 Urine Protein <15 mg/dl mg/dL (Negative) 03/31/21 21:00 Urine Glucose (UA) Neg mg/dL (Negative) 03/31/21 21:00 Urine Ketones Neg mg/dL (Negative) 03/31/21 21:00 Urine Blood Sm (Negative) 03/31/21 21:00 Urine Nitrite Pos (Negative) 03/31/21 21:00 Urine Bilirubin Neg (Negative) 03/31/21 21:00 Urine Urobilinogen 4.0 mg/dL (<2.0) 03/31/21 21:00 Ur Leukocyte Esterase Tr (Negative) 03/31/21 21:00 Urine WBC (Auto) 4.0 /HPF (0.0-6.0) 03/31/21 21:00 Urine RBC (Auto) 2.0 /HPF (0.0-6.0) 03/31/21 21:00 U Epithel Cells (Auto) 1.0 /HPF (0-13.0) 03/31/21 21:00 Urine Mucus Few /HPF 03/31/21 21:00 Fluid Type Cancelled 04/01/21 12:04 Fluid Color Cancelled 04/01/21 12:04 Fluid Appearance Cancelled 04/01/21 12:04 Fluid WBC Cancelled 04/01/21 12:04 Fluid RBC Cancelled 04/01/21 12:04 Fluid Tot Cell Count Cancelled 04/01/21 12:04 Fluid Seg Neutrophils Cancelled 04/01/21 12:04 Fluid Lymphocytes Cancelled 04/01/21 12:04 Fluid Reactive Lymphs Cancelled 04/01/21 12:04 Fluid Monocytes Cancelled 04/01/21 12:04 Fluid Eosinophils Cancelled 04/01/21 12:04 Fluid Basophils Cancelled 04/01/21 12:04 Fluid Glucose TNR 04/01/21 12:04 Fluid Total Protein TNR 04/01/21 12:04 Fluid Comment Cancelled 04/01/21 12:04 CSF Appearance Clear 04/01/21 12:04 CSF Appearance Clear 04/01/21 12:04 CSF Color Colorless 04/01/21 12:04 CSF Color [place] 04/01/21 12:04 CSF WBC 1.1 /mm3 (1-10) 04/01/21 12:04 CSF WBC 5 /mm3 (1-10) 04/01/21 12:04 CSF RBC 13.2 /mm3 (0-0) 04/01/21 12:04 CSF RBC 4075 /mm3 (0-0) 04/01/21 12:04 CSF Seg Neutrophils 0 % (0-6) 04/01/21 12:04 CSF Seg Neutrophils 67.7 % (0-6) 04/01/21 12:04 CSF Lymphocytes % 0 % (40-80) 04/01/21 12:04 CSF Lymphocytes % 32.3 % (40-80) 04/01/21 12:04 CSF Reactive Lymphs 0 % 04/01/21 12:04 CSF Reactive Lymphs 0 % 04/01/21 12:04 CSF Monocytes % 0 % (15-45) 04/01/21 12:04 CSF Monocytes % 0 % (15-45) 04/01/21 12:04 CSF Eosinophils % 0 % 04/01/21 12:04 CSF Eosinophils % 0 % 04/01/21 12:04 CSF Basophils 0 % 04/01/21 12:04 CSF Basophils 0 % 04/01/21 12:04 CSF Pathologist Review C 04/01/21 12:04 CSF Pathologist Review C 04/01/21 12:04 CSF Glucose 59 mg/dL 04/01/21 12:04 CSF Total Protein 51.0 mg/dL 04/01/21 12:04 Nasal Screen MRSA (PCR) Negative (Negative) 04/01/21 06:00 Urine Opiates Screen Negative 03/31/21 21:00 Urine Methadone Screen Negative 03/31/21 21:00 Ur Barbiturates Screen Negative 03/31/21 21:00 Ur Phencyclidine Scrn Negative 03/31/21 21:00 Ur Amphetamines Screen Negative 03/31/21 21:00 U Benzodiazepines Scrn Negative 03/31/21 21:00 Urine Cocaine Screen Negative 03/31/21 21:00 U Marijuana (THC) Screen Positive 03/31/21 21:00 Drugs of Abuse Note Disclamer 03/31/21 21:00 Plasma/Serum Alcohol < 0.01 % (0-0.07) 03/31/21 11:10 [place]/IV: Voiding Method Bedside Commode Active Medications - Current Medications Current Medications: Generic Name Dose Route Start Last Admin Trade Name Freq PRN Reason Stop Dose Admin Acetaminophen 650 mg 03/31/21 20:34 Acetaminophen 325 Mg Tab PO Q4H PRN Pain MILD(1-3)/Fever >100.5/MATHEWS Aspirin 325 mg 03/31/21 21:00 04/03/21 10:20 Aspirin 325 Mg Tab PO 325 mg QDAY JONATHAN Administration Atorvastatin Calcium 40 mg 03/31/21 22:00 04/02/21 21:45 Atorvastatin 40 Mg Tab PO 40 mg QHS JONATHAN Administration Chlordiazepoxide HCl 50 mg 03/31/21 11:24 04/03/21 10:21 Chlordiazepoxide 25 Mg Cap PO 50 mg Q1HR PRN Administration CIWA-Ar 8-15 Heparin Sodium (Porcine) 5,000 unit 03/31/21 22:00 04/03/21 10:21 Heparin 5,000 Unit/1 Ml Vial SUB-Q 5,000 unit Q12HR JONATHAN Administration Hydralazine HCl 10 mg 04/02/21 01:22 04/03/21 06:57 Hydralazine 20 Mg/1 Ml Inj IV 10 mg Q6H PRN Administration Blood Pressure Hydromorphone HCl 0.5 mg 03/31/21 20:34 Hydromorphone 1 Mg/1 Ml Inj IV Q3H PRN Pain , Severe (7-10) Sodium Chloride 1,000 mls @ 75 mls/hr 03/31/21 20:30 04/03/21 04:41 Nacl 0.9% 1000 Ml IV 75 mls/hr DIRECT JONATHAN Administration Thiamine HCl 300 mg/ Sodium 53 mls @ 100 mls/hr 04/01/21 13:00 04/01/21 16:27 Chloride IV 04/04/21 23:59 100 mls/hr QDAY JONATHAN Administration IMMUNE GLOBUL G/GLY/IGA AVG 46 300 mls @ 50 mls/hr 04/03/21 12:00 30 gm/ Miscellaneous IV 04/06/21 15:59 Information Q24HR JONATHAN Levetiracetam 500 mg 03/31/21 22:00 04/03/21 10:20 Levetiracetam 500 Mg Tab PO 500 mg BID JONATHAN Administration Lorazepam 2 mg 03/31/21 11:24 04/01/21 21:42 Lorazepam 2 Mg/Ml Vial IV 2 mg Q1HR PRN Administration CIWA-Ar 8-15 Lorazepam 4 mg 03/31/21 11:24 04/02/21 01:16 Lorazepam 2 Mg/Ml Vial IV 4 mg Q1HR PRN Administration CIWA-Ar 16-25 Lorazepam 4 mg 03/31/21 11:24 Lorazepam 2 Mg/Ml Vial IV Q15MIN PRN CIWA-Ar >25 Metoclopramide HCl 10 mg 03/31/21 20:34 Metoclopramide 10 Mg/2 Ml Inj IV Q6H PRN Nausea And Vomiting Ondansetron HCl 4 mg 03/31/21 20:34 Ondansetron 4 Mg/2 Ml Inj IV Q8H PRN Nausea And Vomiting Oxycodone/Acetaminophen 1 tab 03/31/21 20:34 04/03/21 07:01 Oxycodone /Acetaminophen 5-325mg Tab PO 1 tab Q6H PRN Administration Pain, Moderate (4-6) Pantoprazole Sodium 40 mg 04/01/21 10:00 04/03/21 10:21 Pantoprazole 40 Mg Tab PO 40 mg DAILY JONATHAN Administration Sodium Chloride 10 ml 03/31/21 22:00 04/02/21 21:46 Sodium Chloride 0.9% 10 Ml Flush Syringe IV 10 ml BID JONATHAN Administration Sodium Chloride 10 ml 03/31/21 20:34 Sodium Chloride 0.9% 10 Ml Flush Syringe IV PRN PRN LINE FLUSH Spironolactone 50 mg 04/01/21 10:00 04/03/21 10:20 Spironolactone 50 Mg Tab PO 50 mg QDAY JONATHAN Administration
[2021-04-03] MEDS: NICOTINE 14 MG/24 HR PATCH TD SCH (11:20)
[2021-04-03] MEDS: THIAMINE 300 MG in SODIUM CHLORIDE 0.9% 50 ML IV SCH ×2 (11:21→12:00)
--- NOTE | 2021-04-03 12:36 | Progress Note ---
Assessment and Plan Assessment and Plan Advance Directives: Yes (Full code) VTE prophylaxis?: Chemical Plan of care discussed with patient/family: Yes - Patient Problems #Acute/subacute feet and upper extremities weakness and pain Xone week -unsteady gait related to above -Hx of alcoholism -R/O Acute demylinating neuropathy ,GB -Suggest LP showed Protein 54 normal glucose and 1-2 WBCS ,C/S is unremarkable so far -B12 and tSH wnl - brain MRI is unremarkable -thiamin supplement -send for b1 level - started on IV IG today -Avoid sedation -suggest NIF daily by respiratory therapy Q shift if< 600 CC consider transfer to ICU -Send for IGA titer stat. # Seizure disorder -Continue Keppra # Hypokalemia and Hypomagnesemia -Supplemented # Macrocytic anemia -Anemia work-up including folic acid and B12 levels # DVT prophylaxis -On anticoagulation and GI prophylaxis will follow Subjective Date of service: 04/03/21 Principal diagnosis: weakness Interval history: she is slightly better today sitting on bed commode by her self was able to transfer to bed with difficulty still significantly unsteady started this am on IV-IG Objective - Vital Sign Vital Signs - 12hr 04/03/21 04:35 Temperature 98.1 F Pulse Rate 107 H Respiratory 18 Rate Blood Pressure 138/113 O2 Sat by Pulse 99 Oximetry - General Apperance Constitutional: comfortable - EENT EENT: PERRL, mucous membranes moist - Respiratory Respiratory: chest non-tender, lungs clear, rhonchi - Cardiovascular Cardiovascular: regular rate, normal S1, normal S2 Extremities: no peripheral edema bilat, no clubbing, cyanosis - Gastrointestinal Gastrointestinal: normoactive bowel sounds - Integumentary Integumentary: normal - Neurologic Cranial nerve examination: PERRL, EOMI, intact Speech examination: intact Detailed motor examination: other (upper and lower4-/5 , 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 gait is unsteady ) - Laboratory Findings CBC and BMP: 04/02/21 08:57 04/02/21 04:45 Abnormal Lab Findings: Abnormal Labs 03/31/21 03/31/21 03/31/21 11:10 11:10 11:10 WBC 11.1 H RBC 2.79 L Hgb 9.5 L Hct 28.4 L MCV 102 H MCH 34 H RDW 18.0 H Plt Count 592 H Seg Neutrophils % 73.8 H Seg Neutrophils # 8.2 H APTT 39.9 H Sodium 135 L Potassium 2.7 L* Chloride 94.3 L Carbon Dioxide BUN 6 L Creatinine 0.4 L Glucose 124 H Phosphorus Magnesium AST 106 H Alkaline Phosphatase 249 H CK-MB (CK-2) Rel Index 5.6 H Total Protein Albumin 3.6 L Triglycerides HDL Cholesterol Folate Ur Specific [place] 03/31/21 03/31/21 03/31/21 11:10 11:10 21:00 WBC RBC Hgb Hct MCV MCH RDW Plt Count Seg Neutrophils % Seg Neutrophils # APTT Sodium Potassium Chloride Carbon Dioxide BUN Creatinine Glucose Phosphorus Magnesium 1.60 L AST Alkaline Phosphatase CK-MB (CK-2) Rel Index Total Protein Albumin Triglycerides HDL Cholesterol Folate 2.17 L Ur Specific [place] 1.056 H 04/01/21 04/01/21 04/01/21 05:10 05:10 17:16 WBC 13.3 H RBC 2.45 L Hgb 8.2 L Hct 25.3 L MCV 103 H MCH 34 H RDW 18.1 H Plt Count 531 H 671 H Seg Neutrophils % 71.3 H Seg Neutrophils # 9.5 H APTT Sodium 134 L Potassium Chloride Carbon Dioxide 21 L BUN 5 L Creatinine 0.3 L Glucose Phosphorus Magnesium AST 105 H Alkaline Phosphatase 235 H CK-MB (CK-2) Rel Index Total Protein 6.2 L Albumin 3.2 L Triglycerides 151 H HDL Cholesterol 28 L Folate Ur Specific [place] 04/02/21 04/02/21 04/02/21 04:45 04:45 08:57 WBC 13.0 H RBC 2.30 L Hgb 7.9 L Hct 23.8 L MCV 104 H MCH 34 H RDW 17.7 H Plt Count 530 H 534 H Seg Neutrophils % Seg Neutrophils # APTT Sodium Potassium Chloride Carbon Dioxide BUN 4 L Creatinine 0.4 L Glucose Phosphorus 2.10 L Magnesium 1.50 L AST 82 H Alkaline Phosphatase 231 H CK-MB (CK-2) Rel Index Total Protein 6.0 L Albumin 3.0 L Triglycerides HDL Cholesterol Folate Ur Specific [place] 04/02/21 08:57 WBC RBC Hgb Hct MCV MCH RDW Plt Count Seg Neutrophils % Seg Neutrophils # APTT 39.1 H Sodium Potassium Chloride Carbon Dioxide BUN Creatinine Glucose Phosphorus Magnesium AST Alkaline Phosphatase CK-MB (CK-2) Rel Index Total Protein Albumin Triglycerides HDL Cholesterol Folate Ur Specific [place]
[2021-04-03] MEDS: GLY IV SCH (13:05)
[2021-04-03] MEDS: IGA AVG IV SCH (13:05)
[2021-04-03] MEDS: IMMUNE GLOBUL IV SCH (13:05)
--- NOTE | 2021-04-04 09:09 | Progress Note ---
Assessment and Plan Assessment and plan: --Severe ataxia[ Current Visit: Yes Status: Acute Severe ataxia, generalized weakness Patient unable to stand and walk Gets very unsteady, fall precautions Neurology evaluation noted and appreciated Neuro work-up is in progress Neuro work-up so far; CT head without contrast; no focal mass hemorrhage hydrocephalus or acute infarct work-up so far CTA neck; no dominant stenosis appreciated on CT of the neck Mild narrowing of internal carotid artery seen in the s symmetric fashion CTA head; no significant abnormality Carotid Doppler; less than 50% stenosis bilateral Echo ; LV systolic function normal EF 60 to 65%, No PFO MRI brain; no acute infarction no significant intracranial abnormality Fluoroscopy lumbar puncture [04/02/2021] fluid analysis reports reviewed --Acute/subacute lower and upper extremities weakness ; Current Visit: Yes Status: Acute s/pfluoroscopy-guided lumbar puncture Diagnosis demyelinating disease ? GB syndrome CSF analysis reports reviewed Patient is receiving IVIG day 2, total 4 doses per neurology Respiratory therapist closely monitoring Patient symptoms slightly improved -- h/oSeizure disorder Current Visit: Yes Status: Chronic Seizure precautions ,continue Keppra Ativan as needed, do not drive until cleared by neurology/PMD --Hypokalemia Current Visit: Yes Status: Acute Resolved --Hypomagnesemia Current Visit: Yes Status: Acute Resolved -- Macrocytic anemia Current Visit: Yes Status: Chronic B12 within normal limits Folate levels low, supplement with folic acid Closely monitor --Recreational drug use/marijuana; Advised to quit marijuana --DVT prophylaxis Current Visit: Yes Status: Acute On anticoagulation and GI prophylaxis Neurology evaluation noted and appreciated We will closely monitor patient and adjust management as needed Plan of care reviewed with the patient and the nurse 04/01/2021; Fall precautions Seizure precautions Follow neuro work-up MRI brain Follow lumbar puncture procedure and CSF analysis Follow neuro recommendations 04/02/2021; patient underwent extensive neuro work-up as mentioned above Fluoroscopy-guided lumbar puncture done today, fluid sent for analysis. Follow fluid analysis, follow neuro recommendations 04/03/2021; CSF analysis report reviewed Neurology started the patient on IV Ig Respiratory therapist closely monitoring 04/04/2021; IVIG second dose today[total 4 doses] Patient symptoms slightly improved follow neuro recommendation History Interval history: I have seen and examined the patient at the bedside this morning Patient's chart and medications reviewed, patient received her first dose of IVIG Total 4 doses recommended by neurology, second dose Patient feels good strength and movement in upper and lower extremities Still has little weakness Hospitalist Physical - Constitutional Vitals: Temp Pulse Resp BP Pulse Ox 98.0 F 111 H 18 154/102 100 04/04/21 04:19 04/04/21 04:19 04/04/21 04:19 04/04/21 04:19 04/04/21 04:19 General appearance: Present: no acute distress, well-nourished, other (Upper and lower extremity weakness slightly improved) - EENT Eyes: Present: PERRL, EOM intact - Neck Neck: Present: supple, normal ROM - Respiratory Respiratory effort: normal Respiratory: bilateral: diminished, negative: rales, rhonchi, wheezing - Cardiovascular Rhythm: regular Heart Sounds: Present: S1 & S2 - Extremities Extremities: no ischemia, No edema - Abdominal General gastrointestinal: soft, non-tender, non-distended, normal bowel sounds - Integumentary Integumentary: Present: clear, warm - Psychiatric Psychiatric: appropriate mood/affect, cooperative - Neurologic Neurologic: other (Bilateral lower extremity motor power 3 /5, bilateral upper extremities motor power 3 to 4/5) HEART Score - HEART Score Troponin: Troponin T < 0.010 ng/mL (0.00-0.029) 03/31/21 11:10 Results - Labs CBC & Chem 7: 04/02/21 08:57 04/02/21 04:45 Labs: Laboratory Last Values WBC 13.0 K/mm3 (4.5-11.0) H 04/02/21 04:45 RBC 2.30 M/mm3 (3.65-5.03) L 04/02/21 04:45 Hgb 7.9 gm/dl (10.1-14.3) L 04/02/21 04:45 Hct 23.8 % (30.3-42.9) L 04/02/21 04:45 MCV 104 fl (79-97) H 04/02/21 04:45 MCH 34 pg (28-32) H 04/02/21 04:45 MCHC 33 % (30-34) 04/02/21 04:45 RDW 17.7 % (13.2-15.2) H 04/02/21 04:45 Plt Count 534 K/mm3 (140-440) H 04/02/21 08:57 Lymph % (Auto) 20.0 % (13.4-35.0) 04/01/21 05:10 [place] % (Auto) 5.8 % (0.0-7.3) 04/01/21 05:10 Eos % (Auto) 2.3 % (0.0-4.3) 04/01/21 05:10 Baso % (Auto) 0.6 % (0.0-1.8) 04/01/21 05:10 Lymph # (Auto) 2.7 K/mm3 (1.2-5.4) 04/01/21 05:10 [place] # (Auto) 0.8 K/mm3 (0.0-0.8) 04/01/21 05:10 Eos # (Auto) 0.3 K/mm3 (0.0-0.4) 04/01/21 05:10 Baso # (Auto) 0.1 K/mm3 (0.0-0.1) 04/01/21 05:10 Add Manual Diff Complete 04/02/21 04:45 Seg Neutrophils % 71.3 % (40.0-70.0) H 04/01/21 05:10 Nucleated RBC % Not Reportable 04/02/21 04:45 Seg Neutrophils # 9.5 K/mm3 (1.8-7.7) H 04/01/21 05:10 WBC Morphology Not Reportable 04/02/21 04:45 Hypersegmented Neuts Not Reportable 04/02/21 04:45 Hyposegmented Neuts Not Reportable 04/02/21 04:45 Hypogranular Neuts Not Reportable 04/02/21 04:45 Smudge Cells Not Reportable 04/02/21 04:45 Toxic Granulation Not Reportable 04/02/21 04:45 Toxic Vacuolation Not Reportable 04/02/21 04:45 Dohle Bodies Not Reportable 04/02/21 04:45 Pelger-Huet Anomaly Not Reportable 04/02/21 04:45 [place] Rods Not Reportable 04/02/21 04:45 Platelet Estimate Not Reportable 04/02/21 04:45 Clumped Platelets Not Reportable 04/02/21 04:45 Plt Clumps, EDTA Not Reportable 04/02/21 04:45 Large Platelets Not Reportable 04/02/21 04:45 Giant Platelets Not Reportable 04/02/21 04:45 Platelet Satelliting Not Reportable 04/02/21 04:45 Plt Morphology Comment Not Reportable 04/02/21 04:45 RBC Morphology Not Reportable 04/02/21 04:45 Dimorphic RBCs Not Reportable 04/02/21 04:45 Polychromasia Not Reportable 04/02/21 04:45 Hypochromasia Not Reportable 04/02/21 04:45 Poikilocytosis Not Reportable 04/02/21 04:45 Anisocytosis Not Reportable 04/02/21 04:45 Microcytosis Not Reportable 04/02/21 04:45 Macrocytosis Not Reportable 04/02/21 04:45 Spherocytes Not Reportable 04/02/21 04:45 Pappenheimer Bodies Not Reportable 04/02/21 04:45 Sickle Cells Not Reportable 04/02/21 04:45 Target Cells Not Reportable 04/02/21 04:45 Tear Drop Cells Not Reportable 04/02/21 04:45 Ovalocytes Not Reportable 04/02/21 04:45 Helmet Cells Not Reportable 04/02/21 04:45 Romero-[place] Bodies Not Reportable 04/02/21 04:45 [place] Rings Not Reportable 04/02/21 04:45 [place] Cells Not Reportable 04/02/21 04:45 Bite Cells Not Reportable 04/02/21 04:45 Crenated Cell Not Reportable 04/02/21 04:45 Elliptocytes Not Reportable 04/02/21 04:45 Acanthocytes (Spur) Not Reportable 04/02/21 04:45 Rouleaux Not Reportable 04/02/21 04:45 Hemoglobin C Crystals Not Reportable 04/02/21 04:45 Schistocytes Not Reportable 04/02/21 04:45 Malaria parasites Not Reportable 04/02/21 04:45 Robbi Bodies Not Reportable 04/02/21 04:45 Hem Pathologist Commnt No 04/02/21 04:45 PT 14.5 Sec. (12.2-14.9) 04/02/21 08:57 INR 1.08 (0.87-1.13) 04/02/21 08:57 APTT 39.1 Sec. (24.2-36.6) H 04/02/21 08:57 Thrombin Time 18.6 Sec. (15.1-19.6) 03/31/21 11:10 Sodium 138 mmol/L (137-145) 04/02/21 04:45 Potassium 4.4 mmol/L (3.6-5.0) 04/02/21 04:45 Chloride 106.1 mmol/L (98-107) 04/02/21 04:45 Carbon Dioxide 22 mmol/L (22-30) 04/02/21 04:45 Anion Gap 14 mmol/L 04/02/21 04:45 BUN 4 mg/dL (7-17) L 04/02/21 04:45 Creatinine 0.4 mg/dL (0.6-1.2) L 04/02/21 04:45 Estimated GFR > 60 ml/min 04/02/21 04:45 BUN/Creatinine Ratio 10 % 04/02/21 04:45 Glucose 84 mg/dL (65-100) 04/02/21 04:45 Calcium 9.2 mg/dL (8.4-10.2) 04/02/21 04:45 Phosphorus 2.10 mg/dL (2.5-4.5) L 04/02/21 04:45 Magnesium 1.50 mg/dL (1.7-2.3) L 04/02/21 04:45 Total Bilirubin 0.40 mg/dL (0.1-1.2) 04/02/21 04:45 AST 82 units/L (5-40) H 04/02/21 04:45 ALT 21 units/L (7-56) 04/02/21 04:45 Alkaline Phosphatase 231 units/L (35-129) H 04/02/21 04:45 Total Creatine Kinase 32 units/L (30-135) 03/31/21 11:10 Total Creatine Kinase 32 units/L (30-135) 03/31/21 11:10 CK-MB (CK-2) 1.8 ng/mL (0.0-4.0) 03/31/21 11:10 CK-MB (CK-2) Rel Index 5.6 (0-4) H 03/31/21 11:10 Troponin T < 0.010 ng/mL (0.00-0.029) 03/31/21 11:10 Total Protein 6.0 g/dL (6.3-8.2) L 04/02/21 04:45 Albumin 3.0 g/dL (3.9-5) L 04/02/21 04:45 Albumin/Globulin Ratio 1.0 % 04/02/21 04:45 Triglycerides 151 mg/dL (2-149) H 04/01/21 05:10 Cholesterol 176 mg/dL (50-199) 04/01/21 05:10 LDL Cholesterol Direct 107 mg/dL (50-130) 04/01/21 05:10 HDL Cholesterol 28 mg/dL (40-59) L 04/01/21 05:10 Cholesterol/HDL Ratio 6.28 % 04/01/21 05:10 Vitamin B12 663.3 pg/mL (211-911) 03/31/21 11:10 Folate 2.17 ng/mL (7.3-26.0) L 03/31/21 11:10 TSH 1.060 mlU/mL (0.270-4.200) 03/31/21 11:10 HCG, Quant 0.891 mIU/mL (0-4) 03/31/21 11:10 Urine Color Yellow (Yellow) 03/31/21 21:00 Urine Turbidity Clear (Clear) 03/31/21 21:00 Urine pH 6.0 (5.0-7.0) 03/31/21 21:00 Ur Specific [place] 1.056 (1.003-1.030) H 03/31/21 21:00 Urine Protein <15 mg/dl mg/dL (Negative) 03/31/21 21:00 Urine Glucose (UA) Neg mg/dL (Negative) 03/31/21 21:00 Urine Ketones Neg mg/dL (Negative) 03/31/21 21:00 Urine Blood Sm (Negative) 03/31/21 21:00 Urine Nitrite Pos (Negative) 03/31/21 21:00 Urine Bilirubin Neg (Negative) 03/31/21 21:00 Urine Urobilinogen 4.0 mg/dL (<2.0) 03/31/21 21:00 Ur Leukocyte Esterase Tr (Negative) 03/31/21 21:00 Urine WBC (Auto) 4.0 /HPF (0.0-6.0) 03/31/21 21:00 Urine RBC (Auto) 2.0 /HPF (0.0-6.0) 03/31/21 21:00 U Epithel Cells (Auto) 1.0 /HPF (0-13.0) 03/31/21 21:00 Urine Mucus Few /HPF 03/31/21 21:00 Fluid Type Cancelled 04/01/21 12:04 Fluid Color Cancelled 04/01/21 12:04 Fluid Appearance Cancelled 04/01/21 12:04 Fluid WBC Cancelled 04/01/21 12:04 Fluid RBC Cancelled 04/01/21 12:04 Fluid Tot Cell Count Cancelled 04/01/21 12:04 Fluid Seg Neutrophils Cancelled 04/01/21 12:04 Fluid Lymphocytes Cancelled 04/01/21 12:04 Fluid Reactive Lymphs Cancelled 04/01/21 12:04 Fluid Monocytes Cancelled 04/01/21 12:04 Fluid Eosinophils Cancelled 04/01/21 12:04 Fluid Basophils Cancelled 04/01/21 12:04 Fluid Glucose TNR 04/01/21 12:04 Fluid Total Protein TNR 04/01/21 12:04 Fluid Comment Cancelled 04/01/21 12:04 CSF Appearance Clear 04/01/21 12:04 CSF Appearance Clear 04/01/21 12:04 CSF Color Colorless 04/01/21 12:04 CSF Color [place] 04/01/21 12:04 CSF WBC 1.1 /mm3 (1-10) 04/01/21 12:04 CSF WBC 5 /mm3 (1-10) 04/01/21 12:04 CSF RBC 13.2 /mm3 (0-0) 04/01/21 12:04 CSF RBC 4075 /mm3 (0-0) 04/01/21 12:04 CSF Seg Neutrophils 0 % (0-6) 04/01/21 12:04 CSF Seg Neutrophils 67.7 % (0-6) 04/01/21 12:04 CSF Lymphocytes % 0 % (40-80) 04/01/21 12:04 CSF Lymphocytes % 32.3 % (40-80) 04/01/21 12:04 CSF Reactive Lymphs 0 % 04/01/21 12:04 CSF Reactive Lymphs 0 % 04/01/21 12:04 CSF Monocytes % 0 % (15-45) 04/01/21 12:04 CSF Monocytes % 0 % (15-45) 04/01/21 12:04 CSF Eosinophils % 0 % 04/01/21 12:04 CSF Eosinophils % 0 % 04/01/21 12:04 CSF Basophils 0 % 04/01/21 12:04 CSF Basophils 0 % 04/01/21 12:04 CSF Pathologist Review C 04/01/21 12:04 CSF Pathologist Review C 04/01/21 12:04 CSF Glucose 59 mg/dL 04/01/21 12:04 CSF Total Protein 51.0 mg/dL 04/01/21 12:04 Nasal Screen MRSA (PCR) Negative (Negative) 04/01/21 06:00 Urine Opiates Screen Negative 03/31/21 21:00 Urine Methadone Screen Negative 03/31/21 21:00 Ur Barbiturates Screen Negative 03/31/21 21:00 Ur Phencyclidine Scrn Negative 03/31/21 21:00 Ur Amphetamines Screen Negative 03/31/21 21:00 U Benzodiazepines Scrn Negative 03/31/21 21:00 Urine Cocaine Screen Negative 03/31/21 21:00 U Marijuana (THC) Screen Positive 03/31/21 21:00 Drugs of Abuse Note Disclamer 03/31/21 21:00 Plasma/Serum Alcohol < 0.01 % (0-0.07) 03/31/21 11:10 [place]/IV: Voiding Method Bedside Commode Active Medications - Current Medications Current Medications: Generic Name Dose Route Start Last Admin Trade Name Freq PRN Reason Stop Dose Admin Acetaminophen 650 mg 03/31/21 20:34 Acetaminophen 325 Mg Tab PO Q4H PRN Pain MILD(1-3)/Fever >100.5/MATHEWS Aspirin 325 mg 03/31/21 21:00 04/03/21 10:20 Aspirin 325 Mg Tab PO 325 mg QDAY JONATHAN Administration Atorvastatin Calcium 40 mg 03/31/21 22:00 04/03/21 21:53 Atorvastatin 40 Mg Tab PO 40 mg QHS JONATHAN Administration Chlordiazepoxide HCl 50 mg 03/31/21 11:24 04/03/21 10:21 Chlordiazepoxide 25 Mg Cap PO 50 mg Q1HR PRN Administration CIWA-Ar 8-15 Heparin Sodium (Porcine) 5,000 unit 03/31/21 22:00 04/03/21 21:53 Heparin 5,000 Unit/1 Ml Vial SUB-Q 5,000 unit Q12HR JONATHAN Administration Hydralazine HCl 10 mg 04/02/21 01:22 04/03/21 06:57 Hydralazine 20 Mg/1 Ml Inj IV 10 mg Q6H PRN Administration Blood Pressure Hydromorphone HCl 0.5 mg 03/31/21 20:34 Hydromorphone 1 Mg/1 Ml Inj IV Q3H PRN Pain , Severe (7-10) Sodium Chloride 1,000 mls @ 75 mls/hr 03/31/21 20:30 04/03/21 04:41 Nacl 0.9% 1000 Ml IV 75 mls/hr DIRECT JONATHAN Administration Thiamine HCl 300 mg/ Sodium 53 mls @ 100 mls/hr 04/01/21 13:00 04/03/21 12:00 Chloride IV 04/04/21 23:59 100 mls/hr QDAY JONATHAN Administration IMMUNE GLOBUL G/GLY/IGA AVG 46 300 mls @ 50 mls/hr 04/03/21 12:00 04/03/21 13:05 30 gm/ Miscellaneous IV 04/06/21 15:59 50 mls/hr Information Q24HR JONATHAN Administration Levetiracetam 500 mg 03/31/21 22:00 04/03/21 21:53 Levetiracetam 500 Mg Tab PO 500 mg BID JONATHAN Administration Lorazepam 2 mg 03/31/21 11:24 04/01/21 21:42 Lorazepam 2 Mg/Ml Vial IV 2 mg Q1HR PRN Administration CIWA-Ar 8-15 Lorazepam 4 mg 03/31/21 11:24 04/02/21 01:16 Lorazepam 2 Mg/Ml Vial IV 4 mg Q1HR PRN Administration CIWA-Ar 16-25 Lorazepam 4 mg 03/31/21 11:24 Lorazepam 2 Mg/Ml Vial IV Q15MIN PRN CIWA-Ar >25 Metoclopramide HCl 10 mg 03/31/21 20:34 Metoclopramide 10 Mg/2 Ml Inj IV Q6H PRN Nausea And Vomiting Nicotine 14 mg 04/03/21 12:00 04/03/21 11:20 Nicotine 14 Mg/24 Hr Patch TD 14 mg QDAY JONATHAN Administration Ondansetron HCl 4 mg 03/31/21 20:34 Ondansetron 4 Mg/2 Ml Inj IV Q8H PRN Nausea And Vomiting Oxycodone/Acetaminophen 1 tab 03/31/21 20:34 04/03/21 07:01 Oxycodone /Acetaminophen 5-325mg Tab PO 1 tab Q6H PRN Administration Pain, Moderate (4-6) Pantoprazole Sodium 40 mg 04/01/21 10:00 04/03/21 10:21 Pantoprazole 40 Mg Tab PO 40 mg DAILY JONATHAN Administration Sodium Chloride 10 ml 03/31/21 22:00 04/03/21 21:54 Sodium Chloride 0.9% 10 Ml Flush Syringe IV 10 ml BID JONATHAN Administration Sodium Chloride 10 ml 03/31/21 20:34 Sodium Chloride 0.9% 10 Ml Flush Syringe IV PRN PRN LINE FLUSH Spironolactone 50 mg 04/01/21 10:00 04/03/21 10:20 Spironolactone 50 Mg Tab PO 50 mg QDAY JONATHAN Administration
[2021-04-04] MEDS: NICOTINE 14 MG/24 HR PATCH TD SCH (10:18)
[2021-04-04] MEDS: PANTOPRAZOLE 40 MG TAB PO SCH (10:18)
[2021-04-04] MEDS: levETIRAcetam 500 MG TAB PO SCH ×2 (10:18→21:01)
[2021-04-04] MEDS: SPIRONOLACTONE 50 MG TAB PO SCH (10:18)
[2021-04-04] MEDS: THIAMINE 300 MG in SODIUM CHLORIDE 0.9% 50 ML IV SCH (10:19)
[2021-04-04] MEDS: HEPARIN 5,000 UNIT/1 ML VIAL SUB-Q SCH ×2 (10:19→21:02)
[2021-04-04] MEDS: ASPIRIN 325 MG TAB PO SCH (11:00)
--- NOTE | 2021-04-04 12:28 | Progress Note ---
Assessment and Plan Assessment and Plan Advance Directives: Yes (Full code) VTE prophylaxis?: Chemical Plan of care discussed with patient/family: Yes - Patient Problems #Acute/subacute feet and upper extremities weakness and pain Xone week -unsteady gait related to above -Hx of alcoholism -R/O Acute demylinating neuropathy ,GB -Suggest LP showed Protein 54 normal glucose and 1-2 WBCS ,C/S is unremarkable so far -B12 and tSH wnl - brain MRI is unremarkable -thiamin supplement -send for b1 level - started on IV IG today -Avoid sedation -suggest NIF daily by respiratory therapy Q shift if< 600 CC consider transfer to ICU -Send for IGA titer stat. # Seizure disorder -Continue Keppra # Hypokalemia and Hypomagnesemia -Supplemented # Macrocytic anemia -Anemia work-up including folic acid and B12 levels # DVT prophylaxis -On anticoagulation and GI prophylaxis will follow Subjective Date of service: 04/04/21 Principal diagnosis: weakness Interval history: she is slightly better today started this am on IV-IG day2 Objective - Vital Sign Vital Signs - 12hr 04/04/21 04:19 Temperature 98.0 F Pulse Rate 111 H Respiratory 18 Rate Blood Pressure 154/102 O2 Sat by Pulse 100 Oximetry - General Apperance Constitutional: comfortable - EENT EENT: PERRL, mucous membranes moist - Respiratory Respiratory: chest non-tender, lungs clear, rhonchi - Cardiovascular Cardiovascular: regular rate, normal S1, normal S2 Extremities: no peripheral edema bilat, no clubbing, cyanosis - Gastrointestinal Gastrointestinal: normoactive bowel sounds - Integumentary Integumentary: normal - Neurologic Cranial nerve examination: PERRL, intact Speech examination: intact Detailed motor examination: other (diffuse weakness lower>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 , 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) - Laboratory Findings CBC and BMP: 04/02/21 08:57 04/02/21 04:45 Abnormal Lab Findings: Abnormal Labs 03/31/21 03/31/21 03/31/21 11:10 11:10 11:10 WBC 11.1 H RBC 2.79 L Hgb 9.5 L Hct 28.4 L MCV 102 H MCH 34 H RDW 18.0 H Plt Count 592 H Seg Neutrophils % 73.8 H Seg Neutrophils # 8.2 H APTT 39.9 H Sodium 135 L Potassium 2.7 L* Chloride 94.3 L Carbon Dioxide BUN 6 L Creatinine 0.4 L Glucose 124 H Phosphorus Magnesium AST 106 H Alkaline Phosphatase 249 H CK-MB (CK-2) Rel Index 5.6 H Total Protein Albumin 3.6 L Triglycerides HDL Cholesterol Folate Ur Specific [place] 03/31/21 03/31/21 03/31/21 11:10 11:10 21:00 WBC RBC Hgb Hct MCV MCH RDW Plt Count Seg Neutrophils % Seg Neutrophils # APTT Sodium Potassium Chloride Carbon Dioxide BUN Creatinine Glucose Phosphorus Magnesium 1.60 L AST Alkaline Phosphatase CK-MB (CK-2) Rel Index Total Protein Albumin Triglycerides HDL Cholesterol Folate 2.17 L Ur Specific [place] 1.056 H 04/01/21 04/01/21 04/01/21 05:10 05:10 17:16 WBC 13.3 H RBC 2.45 L Hgb 8.2 L Hct 25.3 L MCV 103 H MCH 34 H RDW 18.1 H Plt Count 531 H 671 H Seg Neutrophils % 71.3 H Seg Neutrophils # 9.5 H APTT Sodium 134 L Potassium Chloride Carbon Dioxide 21 L BUN 5 L Creatinine 0.3 L Glucose Phosphorus Magnesium AST 105 H Alkaline Phosphatase 235 H CK-MB (CK-2) Rel Index Total Protein 6.2 L Albumin 3.2 L Triglycerides 151 H HDL Cholesterol 28 L Folate Ur Specific [place] 04/02/21 04/02/21 04/02/21 04:45 04:45 08:57 WBC 13.0 H RBC 2.30 L Hgb 7.9 L Hct 23.8 L MCV 104 H MCH 34 H RDW 17.7 H Plt Count 530 H 534 H Seg Neutrophils % Seg Neutrophils # APTT Sodium Potassium Chloride Carbon Dioxide BUN 4 L Creatinine 0.4 L Glucose Phosphorus 2.10 L Magnesium 1.50 L AST 82 H Alkaline Phosphatase 231 H CK-MB (CK-2) Rel Index Total Protein 6.0 L Albumin 3.0 L Triglycerides HDL Cholesterol Folate Ur Specific [place] 04/02/21 08:57 WBC RBC Hgb Hct MCV MCH RDW Plt Count Seg Neutrophils % Seg Neutrophils # APTT 39.1 H Sodium Potassium Chloride Carbon Dioxide BUN Creatinine Glucose Phosphorus Magnesium AST Alkaline Phosphatase CK-MB (CK-2) Rel Index Total Protein Albumin Triglycerides HDL Cholesterol Folate Ur Specific [place]
[2021-04-04] MEDS: GLY IV SCH (15:53)
[2021-04-04] MEDS: IGA AVG IV SCH (15:53)
[2021-04-04] MEDS: IMMUNE GLOBUL IV SCH (15:53)
[2021-04-04] MEDS: SODIUM CHLORIDE 0.9% 1000 ML 1,000 ML IV SCH (21:01)
[2021-04-04] MEDS: hydrALAZINE 20 MG/1 ML INJ IV PRN (21:50)
[2021-04-05] MEDS: oxyCODONE /ACETAMINOPHEN 5-325MG TAB PO PRN (00:43)
[2021-04-05] MEDS: NICOTINE 14 MG/24 HR PATCH TD SCH (10:07)
[2021-04-05] MEDS: levETIRAcetam 500 MG TAB PO SCH ×2 (10:07→22:47)
[2021-04-05] MEDS: SPIRONOLACTONE 50 MG TAB PO SCH (10:07)
[2021-04-05] MEDS: ASPIRIN 325 MG TAB PO SCH (10:07)
[2021-04-05] MEDS: HEPARIN 5,000 UNIT/1 ML VIAL SUB-Q SCH ×2 (10:07→22:46)
[2021-04-05] MEDS: PANTOPRAZOLE 40 MG TAB PO SCH (10:07)
[2021-04-05] MEDS: GLY IV SCH (10:44)
[2021-04-05] MEDS: IGA AVG IV SCH (10:44)
[2021-04-05] MEDS: IMMUNE GLOBUL IV SCH (10:44)
--- NOTE | 2021-04-05 10:56 | Progress Note ---
Assessment and Plan Assessment and Plan Advance Directives: Yes (Full code) VTE prophylaxis?: Chemical Plan of care discussed with patient/family: Yes - Patient Problems #Acute/subacute feet and upper extremities weakness and pain Xone week -unsteady gait related to above -Hx of alcoholism -R/O Acute demylinating neuropathy ,GB -Suggest LP showed Protein #51 , glucose is normal ,and 1-2 WBCS ,C/S is unremarkable so far -B12 and tSH wnl - brain MRI is unremarkable -thiamin supplement -send for b1 level - started on IV IG today X 4 days -Avoid sedation -Send for IGA titer stat. -B1 level is pending - # Seizure disorder # Hx of smoking and drinking -Continue Keppra # Hx of smoking and drinking - instructed to stop # Hypokalemia and Hypomagnesemia -Supplemented # Macrocytic anemia -Anemia work-up including folic acid and B12 levels # DVT prophylaxis -On anticoagulation and GI prophylaxis will follow as needed Subjective Date of service: 04/05/21 Principal diagnosis: weakness Interval history: she is significantly better today started this am on IV-IG day#3 walking and strength improved significantly today she wants to go home her [birth year] is in 10 days Instructed about alcohol and smoking stop intake !!! Objective - Vital Sign Vital Signs - 12hr 04/05/21 04/05/21 04/05/21 00:18 04:28 08:30 Temperature 99.0 F 98.7 F 98.9 F Pulse Rate 131 H 122 H 115 H Respiratory 20 20 20 Rate Blood Pressure 116/81 142/99 146/106 O2 Sat by Pulse 99 98 100 Oximetry 04/05/21 10:07 Temperature Pulse Rate 115 H Respiratory Rate Blood Pressure 146/106 O2 Sat by Pulse Oximetry - General Apperance Constitutional: comfortable - EENT EENT: PERRL - Respiratory Respiratory: chest non-tender, lungs clear, rhonchi - Cardiovascular Cardiovascular: regular rate, normal S1, normal S2 Extremities: no peripheral edema bilat, no clubbing, cyanosis - Gastrointestinal Gastrointestinal: normoactive bowel sounds - Integumentary Integumentary: normal - Neurologic Cranial nerve examination: intact Speech examination: intact Detailed motor examination: grossly full strength in, other (with absent reflexes , gait improved ) - Laboratory Findings CBC and BMP: 04/02/21 08:57 04/02/21 04:45 Abnormal Lab Findings: Abnormal Labs 03/31/21 03/31/21 03/31/21 11:10 11:10 11:10 WBC 11.1 H RBC 2.79 L Hgb 9.5 L Hct 28.4 L MCV 102 H MCH 34 H RDW 18.0 H Plt Count 592 H Seg Neutrophils % 73.8 H Seg Neutrophils # 8.2 H APTT 39.9 H Sodium 135 L Potassium 2.7 L* Chloride 94.3 L Carbon Dioxide BUN 6 L Creatinine 0.4 L Glucose 124 H Phosphorus Magnesium AST 106 H Alkaline Phosphatase 249 H CK-MB (CK-2) Rel Index 5.6 H Total Protein Albumin 3.6 L Triglycerides HDL Cholesterol Folate Ur Specific [place] 03/31/21 03/31/21 03/31/21 11:10 11:10 21:00 WBC RBC Hgb Hct MCV MCH RDW Plt Count Seg Neutrophils % Seg Neutrophils # APTT Sodium Potassium Chloride Carbon Dioxide BUN Creatinine Glucose Phosphorus Magnesium 1.60 L AST Alkaline Phosphatase CK-MB (CK-2) Rel Index Total Protein Albumin Triglycerides HDL Cholesterol Folate 2.17 L Ur Specific [place] 1.056 H 04/01/21 04/01/21 04/01/21 05:10 05:10 17:16 WBC 13.3 H RBC 2.45 L Hgb 8.2 L Hct 25.3 L MCV 103 H MCH 34 H RDW 18.1 H Plt Count 531 H 671 H Seg Neutrophils % 71.3 H Seg Neutrophils # 9.5 H APTT Sodium 134 L Potassium Chloride Carbon Dioxide 21 L BUN 5 L Creatinine 0.3 L Glucose Phosphorus Magnesium AST 105 H Alkaline Phosphatase 235 H CK-MB (CK-2) Rel Index Total Protein 6.2 L Albumin 3.2 L Triglycerides 151 H HDL Cholesterol 28 L Folate Ur Specific [place] 04/02/21 04/02/21 04/02/21 04:45 04:45 08:57 WBC 13.0 H RBC 2.30 L Hgb 7.9 L Hct 23.8 L MCV 104 H MCH 34 H RDW 17.7 H Plt Count 530 H 534 H Seg Neutrophils % Seg Neutrophils # APTT Sodium Potassium Chloride Carbon Dioxide BUN 4 L Creatinine 0.4 L Glucose Phosphorus 2.10 L Magnesium 1.50 L AST 82 H Alkaline Phosphatase 231 H CK-MB (CK-2) Rel Index Total Protein 6.0 L Albumin 3.0 L Triglycerides HDL Cholesterol Folate Ur Specific [place] 04/02/21 08:57 WBC RBC Hgb Hct MCV MCH RDW Plt Count Seg Neutrophils % Seg Neutrophils # APTT 39.1 H Sodium Potassium Chloride Carbon Dioxide BUN Creatinine Glucose Phosphorus Magnesium AST Alkaline Phosphatase CK-MB (CK-2) Rel Index Total Protein Albumin Triglycerides HDL Cholesterol Folate Ur Specific [place]
--- NOTE | 2021-04-05 13:15 | Progress Note ---
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 CSF analysis reports reviewed Patient is receiving IVIG day 2, total 4 doses per neurology Respiratory therapist closely monitoring Lower extremity weakness significantly improved Patient is walking without support, strength came back to near normal Last dose of IVIG tomorrow --Severe ataxia[ Current Visit: Yes Status: Acute Severe ataxia, generalized weakness Patient unable to stand and walk Gets very unsteady, fall precautions Neurology evaluation noted and appreciated Neuro work-up so far; CT head without contrast; no focal mass hemorrhage hydrocephalus or acute infarct work-up so far CTA neck; no dominant stenosis appreciated on CT of the neck Mild narrowing of internal carotid artery seen in the s symmetric fashion CTA head; no significant abnormality Carotid Doppler; less than 50% stenosis bilateral Echo ; LV systolic function normal EF 60 to 65%, No PFO MRI brain; no acute infarction no significant intracranial abnormality Fluoroscopy lumbar puncture [04/02/2021] fluid analysis reports reviewed Receiving four doses of IVIG per neurology, last dose tomorrow 04/06/2021 -- h/oSeizure disorder Current Visit: Yes Status: Chronic Seizure precautions ,continue Keppra Ativan as needed, do not drive until cleared by neurology/PMD --Hypokalemia Current Visit: Yes Status: Acute Resolved --Hypomagnesemia Current Visit: Yes Status: Acute Resolved -- Macrocytic anemia Current Visit: Yes Status: Chronic B12 within normal limits Folate levels low, supplement with folic acid Closely monitor --Recreational drug use/marijuana; Advised to quit marijuana --DVT prophylaxis Current Visit: Yes Status: Acute On anticoagulation and GI prophylaxis Neurology evaluation noted and appreciated We will closely monitor patient and adjust management as needed Plan of care reviewed with the patient and the nurse 04/01/2021; Fall precautions Seizure precautions Follow neuro work-up MRI brain Follow lumbar puncture procedure and CSF analysis Follow neuro recommendations 04/02/2021; patient underwent extensive neuro work-up as mentioned above Fluoroscopy-guided lumbar puncture done today, fluid sent for analysis. Follow fluid analysis, follow neuro recommendations 04/03/2021; CSF analysis report reviewed Neurology started the patient on IV Ig Respiratory therapist closely monitoring 04/04/2021; IVIG second dose today[total 4 doses] Patient symptoms slightly improved follow neuro recommendation 04/05/21 patient is receiving third dose of IVIG, last dose tomorrow Requested IgA titers, Patient feels better, walks without support Possible discharge in 1 to 2 days if stable History Interval history: Patient is receiving third dose of IVIG today Ordered titers pending report Patient feels better no new complaints Hospitalist Physical - Constitutional Vitals: Temp Pulse Resp BP Pulse Ox 98.9 F 115 H 20 146/106 100 04/05/21 08:30 04/05/21 10:07 04/05/21 08:30 04/05/21 10:07 04/05/21 08:30 General appearance: Present: no acute distress, well-nourished, other (Upper and lower extremity weakness slightly improved) - EENT Eyes: Present: PERRL, EOM intact - Neck Neck: Present: supple, normal ROM - Respiratory Respiratory effort: normal Respiratory: bilateral: diminished, negative: rales, rhonchi, wheezing - Cardiovascular Rhythm: regular Heart Sounds: Present: S1 & S2 - Extremities Extremities: no ischemia, No edema - Abdominal General gastrointestinal: soft, non-tender, non-distended, normal bowel sounds - Integumentary Integumentary: Present: clear, warm - Psychiatric Psychiatric: appropriate mood/affect, cooperative - Neurologic Neurologic: moves all extremities HEART Score - HEART Score Troponin: Troponin T < 0.010 ng/mL (0.00-0.029) 03/31/21 11:10 Results - Labs CBC & Chem 7: 04/02/21 08:57 04/02/21 04:45 Labs: Laboratory Last Values WBC 13.0 K/mm3 (4.5-11.0) H 04/02/21 04:45 RBC 2.30 M/mm3 (3.65-5.03) L 04/02/21 04:45 Hgb 7.9 gm/dl (10.1-14.3) L 04/02/21 04:45 Hct 23.8 % (30.3-42.9) L 04/02/21 04:45 MCV 104 fl (79-97) H 04/02/21 04:45 MCH 34 pg (28-32) H 04/02/21 04:45 MCHC 33 % (30-34) 04/02/21 04:45 RDW 17.7 % (13.2-15.2) H 04/02/21 04:45 Plt Count 534 K/mm3 (140-440) H 04/02/21 08:57 Lymph % (Auto) 20.0 % (13.4-35.0) 04/01/21 05:10 [place] % (Auto) 5.8 % (0.0-7.3) 04/01/21 05:10 Eos % (Auto) 2.3 % (0.0-4.3) 04/01/21 05:10 Baso % (Auto) 0.6 % (0.0-1.8) 04/01/21 05:10 Lymph # (Auto) 2.7 K/mm3 (1.2-5.4) 04/01/21 05:10 [place] # (Auto) 0.8 K/mm3 (0.0-0.8) 04/01/21 05:10 Eos # (Auto) 0.3 K/mm3 (0.0-0.4) 04/01/21 05:10 Baso # (Auto) 0.1 K/mm3 (0.0-0.1) 04/01/21 05:10 Add Manual Diff Complete 04/02/21 04:45 Seg Neutrophils % 71.3 % (40.0-70.0) H 04/01/21 05:10 Nucleated RBC % Not Reportable 04/02/21 04:45 Seg Neutrophils # 9.5 K/mm3 (1.8-7.7) H 04/01/21 05:10 WBC Morphology Not Reportable 04/02/21 04:45 Hypersegmented Neuts Not Reportable 04/02/21 04:45 Hyposegmented Neuts Not Reportable 04/02/21 04:45 Hypogranular Neuts Not Reportable 04/02/21 04:45 Smudge Cells Not Reportable 04/02/21 04:45 Toxic Granulation Not Reportable 04/02/21 04:45 Toxic Vacuolation Not Reportable 04/02/21 04:45 Dohle Bodies Not Reportable 04/02/21 04:45 Pelger-Huet Anomaly Not Reportable 04/02/21 04:45 [place] Rods Not Reportable 04/02/21 04:45 Platelet Estimate Not Reportable 04/02/21 04:45 Clumped Platelets Not Reportable 04/02/21 04:45 Plt Clumps, EDTA Not Reportable 04/02/21 04:45 Large Platelets Not Reportable 04/02/21 04:45 Giant Platelets Not Reportable 04/02/21 04:45 Platelet Satelliting Not Reportable 04/02/21 04:45 Plt Morphology Comment Not Reportable 04/02/21 04:45 RBC Morphology Not Reportable 04/02/21 04:45 Dimorphic RBCs Not Reportable 04/02/21 04:45 Polychromasia Not Reportable 04/02/21 04:45 Hypochromasia Not Reportable 04/02/21 04:45 Poikilocytosis Not Reportable 04/02/21 04:45 Anisocytosis Not Reportable 04/02/21 04:45 Microcytosis Not Reportable 04/02/21 04:45 Macrocytosis Not Reportable 04/02/21 04:45 Spherocytes Not Reportable 04/02/21 04:45 Pappenheimer Bodies Not Reportable 04/02/21 04:45 Sickle Cells Not Reportable 04/02/21 04:45 Target Cells Not Reportable 04/02/21 04:45 Tear Drop Cells Not Reportable 04/02/21 04:45 Ovalocytes Not Reportable 04/02/21 04:45 Helmet Cells Not Reportable 04/02/21 04:45 [place] Bodies Not Reportable 04/02/21 04:45 [place] Rings Not Reportable 04/02/21 04:45 [place] Cells Not Reportable 04/02/21 04:45 Bite Cells Not Reportable 04/02/21 04:45 Crenated Cell Not Reportable 04/02/21 04:45 Elliptocytes Not Reportable 04/02/21 04:45 Acanthocytes (Spur) Not Reportable 04/02/21 04:45 Rouleaux Not Reportable 04/02/21 04:45 Hemoglobin C Crystals Not Reportable 04/02/21 04:45 Schistocytes Not Reportable 04/02/21 04:45 Malaria parasites Not Reportable 04/02/21 04:45 Robbi Bodies Not Reportable 04/02/21 04:45 Hem Pathologist Commnt No 04/02/21 04:45 PT 14.5 Sec. (12.2-14.9) 04/02/21 08:57 INR 1.08 (0.87-1.13) 04/02/21 08:57 APTT 39.1 Sec. (24.2-36.6) H 04/02/21 08:57 Thrombin Time 18.6 Sec. (15.1-19.6) 03/31/21 11:10 Sodium 138 mmol/L (137-145) 04/02/21 04:45 Potassium 4.4 mmol/L (3.6-5.0) 04/02/21 04:45 Chloride 106.1 mmol/L (98-107) 04/02/21 04:45 Carbon Dioxide 22 mmol/L (22-30) 04/02/21 04:45 Anion Gap 14 mmol/L 04/02/21 04:45 BUN 4 mg/dL (7-17) L 04/02/21 04:45 Creatinine 0.4 mg/dL (0.6-1.2) L 04/02/21 04:45 Estimated GFR > 60 ml/min 04/02/21 04:45 BUN/Creatinine Ratio 10 % 04/02/21 04:45 Glucose 84 mg/dL (65-100) 04/02/21 04:45 Calcium 9.2 mg/dL (8.4-10.2) 04/02/21 04:45 Phosphorus 2.10 mg/dL (2.5-4.5) L 04/02/21 04:45 Magnesium 1.50 mg/dL (1.7-2.3) L 04/02/21 04:45 Total Bilirubin 0.40 mg/dL (0.1-1.2) 04/02/21 04:45 AST 82 units/L (5-40) H 04/02/21 04:45 ALT 21 units/L (7-56) 04/02/21 04:45 Alkaline Phosphatase 231 units/L (35-129) H 04/02/21 04:45 Total Creatine Kinase 32 units/L (30-135) 03/31/21 11:10 Total Creatine Kinase 32 units/L (30-135) 03/31/21 11:10 CK-MB (CK-2) 1.8 ng/mL (0.0-4.0) 03/31/21 11:10 CK-MB (CK-2) Rel Index 5.6 (0-4) H 03/31/21 11:10 Troponin T < 0.010 ng/mL (0.00-0.029) 03/31/21 11:10 Total Protein 6.0 g/dL (6.3-8.2) L 04/02/21 04:45 Albumin 3.0 g/dL (3.9-5) L 04/02/21 04:45 Albumin/Globulin Ratio 1.0 % 04/02/21 04:45 Triglycerides 151 mg/dL (2-149) H 04/01/21 05:10 Cholesterol 176 mg/dL (50-199) 04/01/21 05:10 LDL Cholesterol Direct 107 mg/dL (50-130) 04/01/21 05:10 HDL Cholesterol 28 mg/dL (40-59) L 04/01/21 05:10 Cholesterol/HDL Ratio 6.28 % 04/01/21 05:10 Vitamin B12 663.3 pg/mL (211-911) 03/31/21 11:10 Folate 2.17 ng/mL (7.3-26.0) L 03/31/21 11:10 TSH 1.060 mlU/mL (0.270-4.200) 03/31/21 11:10 HCG, Quant 0.891 mIU/mL (0-4) 03/31/21 11:10 Urine Color Yellow (Yellow) 03/31/21 21:00 Urine Turbidity Clear (Clear) 03/31/21 21:00 Urine pH 6.0 (5.0-7.0) 03/31/21 21:00 Ur Specific [place] 1.056 (1.003-1.030) H 03/31/21 21:00 Urine Protein <15 mg/dl mg/dL (Negative) 03/31/21 21:00 Urine Glucose (UA) Neg mg/dL (Negative) 03/31/21 21:00 Urine Ketones Neg mg/dL (Negative) 03/31/21 21:00 Urine Blood Sm (Negative) 03/31/21 21:00 Urine Nitrite Pos (Negative) 03/31/21 21:00 Urine Bilirubin Neg (Negative) 03/31/21 21:00 Urine Urobilinogen 4.0 mg/dL (<2.0) 03/31/21 21:00 Ur Leukocyte Esterase Tr (Negative) 03/31/21 21:00 Urine WBC (Auto) 4.0 /HPF (0.0-6.0) 03/31/21 21:00 Urine RBC (Auto) 2.0 /HPF (0.0-6.0) 03/31/21 21:00 U Epithel Cells (Auto) 1.0 /HPF (0-13.0) 03/31/21 21:00 Urine Mucus Few /HPF 03/31/21 21:00 Fluid Type Cancelled 04/01/21 12:04 Fluid Color Cancelled 04/01/21 12:04 Fluid Appearance Cancelled 04/01/21 12:04 Fluid WBC Cancelled 04/01/21 12:04 Fluid RBC Cancelled 04/01/21 12:04 Fluid Tot Cell Count Cancelled 04/01/21 12:04 Fluid Seg Neutrophils Cancelled 04/01/21 12:04 Fluid Lymphocytes Cancelled 04/01/21 12:04 Fluid Reactive Lymphs Cancelled 04/01/21 12:04 Fluid Monocytes Cancelled 04/01/21 12:04 Fluid Eosinophils Cancelled 04/01/21 12:04 Fluid Basophils Cancelled 04/01/21 12:04 Fluid Glucose TNR 04/01/21 12:04 Fluid Total Protein TNR 04/01/21 12:04 Fluid Comment Cancelled 04/01/21 12:04 CSF Appearance Clear 04/01/21 12:04 CSF Appearance Clear 04/01/21 12:04 CSF Color Colorless 04/01/21 12:04 CSF Color [place] 04/01/21 12:04 CSF WBC 1.1 /mm3 (1-10) 04/01/21 12:04 CSF WBC 5 /mm3 (1-10) 04/01/21 12:04 CSF RBC 13.2 /mm3 (0-0) 04/01/21 12:04 CSF RBC 4075 /mm3 (0-0) 04/01/21 12:04 CSF Seg Neutrophils 0 % (0-6) 04/01/21 12:04 CSF Seg Neutrophils 67.7 % (0-6) 04/01/21 12:04 CSF Lymphocytes % 0 % (40-80) 04/01/21 12:04 CSF Lymphocytes % 32.3 % (40-80) 04/01/21 12:04 CSF Reactive Lymphs 0 % 04/01/21 12:04 CSF Reactive Lymphs 0 % 04/01/21 12:04 CSF Monocytes % 0 % (15-45) 04/01/21 12:04 CSF Monocytes % 0 % (15-45) 04/01/21 12:04 CSF Eosinophils % 0 % 04/01/21 12:04 CSF Eosinophils % 0 % 04/01/21 12:04 CSF Basophils 0 % 04/01/21 12:04 CSF Basophils 0 % 04/01/21 12:04 CSF Pathologist Review C 04/01/21 12:04 CSF Pathologist Review C 04/01/21 12:04 CSF Glucose 59 mg/dL 04/01/21 12:04 CSF Total Protein 51.0 mg/dL 04/01/21 12:04 Nasal Screen MRSA (PCR) Negative (Negative) 04/01/21 06:00 Urine Opiates Screen Negative 03/31/21 21:00 Urine Methadone Screen Negative 03/31/21 21:00 Ur Barbiturates Screen Negative 03/31/21 21:00 Ur Phencyclidine Scrn Negative 03/31/21 21:00 Ur Amphetamines Screen Negative 03/31/21 21:00 U Benzodiazepines Scrn Negative 03/31/21 21:00 Urine Cocaine Screen Negative 03/31/21 21:00 U Marijuana (THC) Screen Positive 03/31/21 21:00 Drugs of Abuse Note Disclamer 03/31/21 21:00 Plasma/Serum Alcohol < 0.01 % (0-0.07) 03/31/21 11:10 [place]/IV: Voiding Method Bedside Commode Active Medications - Current Medications Current Medications: Generic Name Dose Route Start Last Admin Trade Name Freq PRN Reason Stop Dose Admin Acetaminophen 650 mg 03/31/21 20:34 Acetaminophen 325 Mg Tab PO Q4H PRN Pain MILD(1-3)/Fever >100.5/MATHEWS Aspirin 325 mg 03/31/21 21:00 04/05/21 10:07 Aspirin 325 Mg Tab PO 325 mg QDAY JONATHAN Administration Atorvastatin Calcium 40 mg 03/31/21 22:00 04/04/21 21:01 Atorvastatin 40 Mg Tab PO 40 mg QHS JONATHAN Administration Chlordiazepoxide HCl 50 mg 03/31/21 11:24 04/03/21 10:21 Chlordiazepoxide 25 Mg Cap PO 50 mg Q1HR PRN Administration CIWA-Ar 8-15 Heparin Sodium (Porcine) 5,000 unit 03/31/21 22:00 04/05/21 10:07 Heparin 5,000 Unit/1 Ml Vial SUB-Q 5,000 unit Q12HR JONATHAN Administration Hydralazine HCl 10 mg 04/02/21 01:22 04/04/21 21:50 Hydralazine 20 Mg/1 Ml Inj IV 10 mg Q6H PRN Administration Blood Pressure Hydromorphone HCl 0.5 mg 03/31/21 20:34 Hydromorphone 1 Mg/1 Ml Inj IV Q3H PRN Pain , Severe (7-10) Sodium Chloride 1,000 mls @ 75 mls/hr 03/31/21 20:30 04/04/21 21:01 Nacl 0.9% 1000 Ml IV 75 mls/hr DIRECT JONATHAN Administration IMMUNE GLOBUL G/GLY/IGA AVG 46 300 mls @ 50 mls/hr 04/03/21 12:00 04/04/21 15:53 30 gm/ Miscellaneous IV 04/06/21 15:59 50 mls/hr Information Q24HR JONATHAN Administration Levetiracetam 500 mg 03/31/21 22:00 04/05/21 10:07 Levetiracetam 500 Mg Tab PO 500 mg BID JONATHAN Administration Lorazepam 2 mg 03/31/21 11:24 04/01/21 21:42 Lorazepam 2 Mg/Ml Vial IV 2 mg Q1HR PRN Administration CIWA-Ar 8-15 Lorazepam 4 mg 03/31/21 11:24 04/02/21 01:16 Lorazepam 2 Mg/Ml Vial IV 4 mg Q1HR PRN Administration CIWA-Ar 16-25 Lorazepam 4 mg 03/31/21 11:24 Lorazepam 2 Mg/Ml Vial IV Q15MIN PRN CIWA-Ar >25 Metoclopramide HCl 10 mg 03/31/21 20:34 Metoclopramide 10 Mg/2 Ml Inj IV Q6H PRN Nausea And Vomiting Nicotine 14 mg 04/03/21 12:00 04/05/21 10:07 Nicotine 14 Mg/24 Hr Patch TD 14 mg QDAY JONATHAN Administration Ondansetron HCl 4 mg 03/31/21 20:34 Ondansetron 4 Mg/2 Ml Inj IV Q8H PRN Nausea And Vomiting Oxycodone/Acetaminophen 1 tab 03/31/21 20:34 04/05/21 00:43 Oxycodone /Acetaminophen 5-325mg Tab PO 1 tab Q6H PRN Administration Pain, Moderate (4-6) Pantoprazole Sodium 40 mg 04/01/21 10:00 04/05/21 10:07 Pantoprazole 40 Mg Tab PO 40 mg DAILY JONATHAN Administration Sodium Chloride 10 ml 03/31/21 22:00 04/05/21 10:08 Sodium Chloride 0.9% 10 Ml Flush Syringe IV 10 ml BID JONATHAN Administration Sodium Chloride 10 ml 03/31/21 20:34 Sodium Chloride 0.9% 10 Ml Flush Syringe IV PRN PRN LINE FLUSH Spironolactone 50 mg 04/01/21 10:00 04/05/21 10:07 Spironolactone 50 Mg Tab PO 50 mg QDAY JONATHAN Administration
[2021-04-06] MEDS: SODIUM CHLORIDE 0.9% 1000 ML 1,000 ML IV SCH (06:52)
--- NOTE | 2021-04-06 08:17 | Discharge Summary ---
Providers - Providers Date of Admission: 04/03/21 07:52 Date of discharge: 04/06/21 Attending physician: MARY LOU GARCÍA 03/31/21 Consult to Physician [CONS] Routine Comment: Consulting Provider: CARIE MEDRANO Physician Instructions: Reason For Exam: Severe ataxia 03/31/21 20:27 Occupational Therapy Evaluate and Treat [CONS] Routine Comment: Reason For Exam: Neuro deficits Physical Therapy Evaluation and Treat [CONS] Routine Comment: Reason For Exam: Neuro deficits 04/01/21 10:39 Speech Therapy Evaluation and Treat [CONS] Stat Reason For Exam: speech therapy Primary care physician: ECONOMIC RESEARCH ASSISTANT Hospitalization Reason for admission: Unsteady gait/severe ataxia/lower extremity weakness 3 to 4 days Condition: Good Pertinent studies: Neuro work-up so far; CT head without contrast; no focal mass hemorrhage hydrocephalus or acute infarct work-up so far CTA neck; no dominant stenosis appreciated on CT of the neck Mild narrowing of internal carotid artery seen in the s symmetric fashion CTA head; no significant abnormality Carotid Doppler; less than 50% stenosis bilateral Echo ; LV systolic function normal EF 60 to 65%, No PFO MRI brain; no acute infarction no significant intracranial abnormality Fluoroscopy lumbar puncture [04/02/2021] fluid analysis reports reviewed Received four doses of IVIG per neurology, last dose completed on 04/06/2021 Procedures: Lumbar puncture Hospital course: 45-year-old female patient with significant past medical history of seizures on antiepileptic medication was admitted through emergency room with generalized weakness on and numbness lower extremities and hands with unsteady gait and unable to walk for the last 1 week patient was admitted to the hospital had extensive neuro work-up evaluated by neurologist patient subsequently underwent lumbar puncture fluid analysis reviewed neurology 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 Patient symptoms slowly but gradually improved, patient also received physical therapy and Occupational Therapy. Please review extensive neuro work-up that was done and the reports of which are as mentioned above. Patient symptoms slowly but gradually improved and physical therapy recommended rolling walker and home health PT. Patient has significant improvement of gait stability and extremity weakness and today patient is comfortable ambulatory with mild support no new complaints vital signs stable physical examination prior to discharge no new changes noted. cleared by neurologist for discharge and follow-up with private neurologist and primary care physician per schedule for further evaluation and management. Patient is hemodynamically and clinically stable at discharge Case management has set up home health services with home health PT and OT upon discharge Patient strongly advised to comply with medications diet and follow-up visits. Discharge diagnosis: --Acute/subacute lower and upper extremities weakness ; Current Visit: Yes Status: Acute s/pfluoroscopy-guided lumbar puncture -- Demyelinating disease Current Visit: Yes Status: Acute CSF analysis reports reviewed Patient received IVIG total 4 doses per neurology Respiratory therapist closely monitoring Lower extremity weakness significantly improved Patient is walking without support, strength came back to near normal --Severe ataxia[ Current Visit: Yes Status: Acute Severe ataxia, generalized weakness Patient unable to stand and walk Gets very unsteady, fall precautions Neurology evaluation noted and appreciated Neuro work-up so far; CT head without contrast; no focal mass hemorrhage hydrocephalus or acute infarct work-up so far CTA neck; no dominant stenosis appreciated on CT of the neck Mild narrowing of internal carotid artery seen in the s symmetric fashion CTA head; no significant abnormality Carotid Doppler; less than 50% stenosis bilateral Echo ; LV systolic function normal EF 60 to 65%, No PFO MRI brain; no acute infarction no significant intracranial abnormality Fluoroscopy lumbar puncture [04/02/2021] fluid analysis reports reviewed Receiving four doses of IVIG per neurology, last dose tomorrow 04/06/2021 -- h/oSeizure disorder Current Visit: Yes Status: Chronic Seizure precautions ,continue Keppra Ativan as needed, do not drive until cleared by neurology/PMD --Hypokalemia Current Visit: Yes Status: Acute Resolved --Hypomagnesemia Current Visit: Yes Status: Acute Resolved -- Macrocytic anemia Current Visit: Yes Status: Chronic B12 within normal limits Folate levels low, supplement with folic acid Closely monitor --Recreational drug use/marijuana; Advised to quit marijuana --Moderate malnutrition and hypoalbuminemia --DVT prophylaxis Current Visit: Yes Status: Acute On anticoagulation and GI prophylaxis Neurology evaluation noted and appreciated We will closely monitor patient and adjust management as needed Plan of care reviewed with the patient and the nurse 04/01/2021; Fall precautions Seizure precautions Follow neuro work-up MRI brain Follow lumbar puncture procedure and CSF analysis Follow neuro recommendations 04/02/2021; patient underwent extensive neuro work-up as mentioned above Fluoroscopy-guided lumbar puncture done today, fluid sent for analysis. Follow fluid analysis, follow neuro recommendations 04/03/2021; CSF analysis report reviewed Neurology started the patient on IVIG Respiratory therapist closely monitoring 04/04/2021; IVIG second dose today[total 4 doses] Patient symptoms slightly improved follow neuro recommendation 04/05/21 patient is receiving third dose of IVIG, last dose tomorrow Requested IgA titers, Patient feels better, walks without support Possible discharge in 1 to 2 days if stable 04/06/2021; patient completed fourth dose of IVIG today Patient's upper and lower extremity limp weakness completely resolved Ambulatory, PT OT evaluated Stable at discharge Disposition: 06 HOME HEALTH CARE SERVICE Final Discharge Diagnosis (Prints w/discharge instructions): Acute /subacute lower extremity weakness[significantly improved]. Demyelinating disease. Received four doses of IVIG per neurology. Severe ataxia/significantly improved. Seizure disorder. Marijuana use. Hypokalemia resolved. Hypomagnesemia corrected. Moderate malnutrition/hypoalbuminemia Time spent for discharge: 35 min Core Measure Documentation - Palliative Care Palliative Care/ Comfort Measures: Not Applicable - Core Measures Any of the following diagnoses?: none Exam - Constitutional Vitals: Temp Pulse Resp BP Pulse Ox 98.5 F 117 H 20 130/93 99 04/06/21 03:33 04/06/21 03:33 04/06/21 03:33 04/06/21 03:33 04/06/21 03:33 General appearance: Present: no acute distress, well-nourished - EENT Eyes: Present: PERRL, EOM intact - Neck Neck: Present: supple, normal ROM - Respiratory Respiratory effort: normal Respiratory: bilateral: diminished, negative: rales, rhonchi, wheezing - Cardiovascular Rhythm: regular Heart Sounds: Present: S1 & S2 - Extremities Extremities: no ischemia, No edema - Abdominal General gastrointestinal: Present: soft, non-tender, non-distended, normal bowel sounds - Integumentary Integumentary: Present: clear, warm - Musculoskeletal Musculoskeletal: strength equal bilaterally, other - Psychiatric Psychiatric: appropriate mood/affect, cooperative - Neurologic Neurologic: moves all extremities Plan Activity: advance as tolerated, fall precautions Diet: regular Special Instructions: physical therapy (Home physical therapy) Durable Medical Equipment Needed Upon Discharge: Walker-Rolling Additional Instructions: Fall precautions. If you have worsening symptoms contact MD or go to emergency room as needed. Advised to see primary care physician in 5 to 7 days. In 1 week advised to see private neurologist Follow up with: PRIMARY MD BRIAN [Primary Care Provider] - 3-5 Days DAVID SARAH MD [Staff Physician] - 7 Days Prescriptions: Nicotine [Habitrol] 14 mg TD QDAY #30 patch Aspirin EC [Halfprin EC] 81 mg PO QDAY #30 tablet. AtorvaSTATin [Lipitor] 20 mg PO QHS #30 tab Magnesium Oxide [Mag-Ox] 400 mg PO QDAY #7 tablet oxyCODONE /ACETAMINOPHEN [Percocet 5/325 mg] 1 tab PO BID PRN #8 tablet PRN Reason: Pain, Moderate (4-6) Thiamine [Vitamin B-1] 100 mg PO QDAY #30 tablet Other Discharge Orders: Walker-Rolling (Amb) Location: None Selected
[2021-04-06] MEDS: hydrALAZINE 20 MG/1 ML INJ IV PRN (08:22)
[2021-04-06] MEDS: PANTOPRAZOLE 40 MG TAB PO SCH (10:52)
[2021-04-06] MEDS: ASPIRIN 325 MG TAB PO SCH (10:52)
[2021-04-06] MEDS: HEPARIN 5,000 UNIT/1 ML VIAL SUB-Q SCH (10:52)
[2021-04-06] MEDS: SPIRONOLACTONE 50 MG TAB PO SCH (10:52)
[2021-04-06] MEDS: levETIRAcetam 500 MG TAB PO SCH (10:52)
[2021-04-06] MEDS: NICOTINE 14 MG/24 HR PATCH TD SCH (10:52)
[2021-04-06] MEDS: GLY IV SCH (11:25)
[2021-04-06] MEDS: IMMUNE GLOBUL IV SCH (11:25)
[2021-04-06] MEDS: IGA AVG IV SCH (11:25)
[2021-04-06] MEDS ORDERED: MAGNESIUM OXIDE 400 MG TAB PO SCH (17:00)
[2021-04-06 18:09] VITALS: BP 161/112
== END 2021-04-06 18:53 | disposition home health service (06) | DRG 59 ==
LOC: ED 10:38 → 4A 13:40 → OBSVTOIN 04-03 07:52
PROVIDERS: ADMIT Internal Medicine; ATTEND Internal Medicine
PROC: 009U3ZX Drainage of Spinal Canal, Percutaneous Approach, Diagnostic (ICD-10-PCS; principal; 2021-04-02)
PROC: B01B1ZZ Fluoroscopy of Spinal Cord using Low Osmolar Contrast (ICD-10-PCS; 2021-04-02)
DX: G37.9 Demyelinating disease of central nervous system, unspecified (principal); E44.0 Moderate protein-calorie malnutrition; R27.0 Ataxia, unspecified; D53.9 Nutritional anemia, unspecified; F17.200 Nicotine dependence, unspecified, uncomplicated; E87.6 Hypokalemia; E83.42 Hypomagnesemia; H54.7 Unspecified visual loss; G40.909 Epilepsy, unspecified, not intractable, without status epilepticus; F12.90 Cannabis use, unspecified, uncomplicated; Z68.27 Body mass index [BMI] 27.0-27.9, adult
CPT/HCPCS: 36415; 62270; 62328; 70450; 70496; 70498; 70551; 80053; 80061; 80307; 80320; 81001; 82550; 82553; 82607; 82747; 82947; 83735; 84100; 84132; 84160; 84425; 84443; 84484; 84702; 85007; 85025; 85049; 85610; 85670; 85730; 86255; 89051; 93005; 93306; 93880; 99406; G0378; G0480; J0360; J1170; J1561; J1644; J2060; J2765; J3411; J3475; J3480; J7030; J7120; Q9967